=== PATIENT | female | born 1945 | race Caucasian/White ===

== ENCOUNTER → 2020-06-29 16:10 | Outpatient (BNVA) | payer MEDICARE, SELFPAY | PROVIDERS: PCP Internal Medicine; Referring Provider Internal Medicine; Visit Provider Student in an Organized Health Care Education/Training Program | DX: M35.3 Polymyalgia rheumatica (principal); Z79.52 Long term (current) use of systemic steroids | CPT/HCPCS: 99212 ==

== ENCOUNTER 2020-08-16 13:07 | Outpatient (REF) | payer MEDICARE, SELFPAY ==
[2020-08-16 14:56] LABS: Alanine Aminotransferase 19 U/L (0-31); Albumin Level 4.1 g/dL (3.5-5.0); Alkaline Phosphatase 47 U/L (39-117); Anion Gap 12 (12-20); Aspartate Amino Transferase 22 U/L (5-31); Bilirubin Total 0.4 mg/dL (0.0-1.0); Blood Urea Nitrogen 16 mg/dL (9-16); C Reactive Protein 0.15 mg/dL (< or = 0.50); Calcium 9.5 mg/dL (8.4-10.2); Carbon Dioxide 27 mmol/L (22-29); Chloride 103 mmol/L (96-108); Estimated Glomerular Filt Rate > 60; Glucose Random 88 mg/dL (60-115); Potassium 4.4 mmol/l (3.3-5.1); Sodium 138 mmol/L (135-145); Total Protein 6.7 g/dL (6.5-8.0)
[2020-08-16 15:06] LABS: Erythrocyte Sedimentation Rate 5 MM/HR (0-20)
[2020-08-16 16:05] LABS: T4 Thyroxine 6.1 ug/dL (4.5-12.0)
[2020-08-17 09:31] LABS: Triiodothyronine T3 Free 2.4 pg/mL (2.3-4.2)
== END 2020-08-16 13:08 | disposition home or self-care (01) ==
LOC: HO.LAB 13:07
PROVIDERS: Absent Provider Student in an Organized Health Care Education/Training Program; PCP Internal Medicine; Visit Provider Family Medicine
DX: M35.3 Polymyalgia rheumatica (principal); Z79.899 Other long term (current) drug therapy
CPT/HCPCS: 36415; 80053; 84436; 84443; 84481; 85652; 86140

== ENCOUNTER → 2020-09-01 15:29 | Outpatient (BNVA) | payer MEDICARE, SELFPAY | PROVIDERS: PCP Internal Medicine; Visit Provider Student in an Organized Health Care Education/Training Program | DX: M35.3 Polymyalgia rheumatica (principal); Z79.52 Long term (current) use of systemic steroids | CPT/HCPCS: 99212 ==

== ENCOUNTER 2020-11-09 14:28 | Outpatient (REF) | payer MEDICARE, SELFPAY ==
[2020-11-09 15:36] LABS: C Reactive Protein 0.29 mg/dL (< or = 0.50)
[2020-11-09 16:01] LABS: Erythrocyte Sedimentation Rate 6 MM/HR (0-20)
== END 2020-11-09 14:29 | disposition home or self-care (01) ==
LOC: HO.LAB 14:28
PROVIDERS: PCP Internal Medicine; Visit Provider Student in an Organized Health Care Education/Training Program
DX: M35.3 Polymyalgia rheumatica (principal); Z79.899 Other long term (current) drug therapy; Z87.891 Personal history of nicotine dependence; Z79.52 Long term (current) use of systemic steroids
CPT/HCPCS: 36415; 85652; 86140; 99212

== ENCOUNTER 2020-11-16 12:48 | Outpatient (REF) | payer MEDICARE, SELFPAY ==
--- NOTE | ~2020-11-16 | MM_ITS ---
EXAMINATION: BONE DENSITOMETRY CLINICAL INDICATION: Long-term, current, use of systemic steroids. Polymyalgia rheumatica. COMPARISON: Baseline BD dated 08/08/2018. TECHNIQUE: Using a [employer] DXA System (software version: 13.1) manufactured by [employer], dual-energy x-ray absorptiometry was performed of the lumbar spine and left hip. The images are of good technical quality. Summary results are attached. FINDINGS: AP SPINE L1-L4: Current: BMD 1.253 g/cm2, Z-score 2.1, T-score 0.6, normal, 3.4% increase from baseline (<5% change is not significant). Baseline: BMD 1.212 g/cm2. LEFT FEMUR, NECK: Current: BMD 0.955 g/cm2, Z-score 1.1, T-score -0.6, normal. Baseline: BMD 1.015 g/cm2. LEFT FEMUR, TOTAL: Current: BMD 0.921 g/cm2, Z-score 0.8, T-score -0.7, normal, 1.4% decrease from baseline (<5% change is not significant). Baseline: BMD 0.934 g/cm2. IDENTIFIED RISK FACTORS: Height loss, secondary osteoporosis, glucocorticoids (chronic), menopause. HISTORY OF FRACTURE: None listed. MEDICATIONS: Calcium supplements or multivitamin, vitamin D, ERT/SERMS . MM/XR DEXA axial skeleton IMPRESSION: 1. DIAGNOSIS: Normal bone density based on the lowest T-score value of -0.7 in the total femur applying World Health Organization criteria. 2. 10-YEAR FRACTURE RISK PREDICTION, FRAX: Major osteoporotic fracture (clinical spine, forearm, hip or shoulder) 13.6%. Hip fracture 1.8%. 3. Treatment Recommendations: NOF guidelines recommend consideration for treatment in postmenopausal women and men age 50 and older presenting with the following: -A hip or vertebral (clinical or morphometric) fracture. -T-score less than or equal to -2.5 at the femoral neck or spine after appropriate evaluation to exclude secondary causes. -Low bone mass at the hip or spine and a 10-year fracture probability by FRAX of greater than or equal to 3% for hip fracture or greater than or equal to 20% for major osteoporotic fracture based on the [place] adapted WHO algorithm. 4. Other Recommendations: All treatment decisions require clinical judgment and consideration of individual patient factors, including patient preferences, comorbidities, previous drug use, risk factors not captured in the FRAX model (e.g. frailty, falls, vitamin D deficiency, increased bone turnover, interval significant decline in bone density) and possible under or overestimation of fracture risk by FRAX. FUTURE SCAN RECOMMENDATION: People with diagnosed cases of osteoporosis or at high risk for fracture should have regular bone mineral density tests. For patients eligible for Medicare, routine testing is allowed once every 2 years. The testing frequency can be increased to one year for patients who have rapidly progressing disease, those who are receiving or discontinuing medical therapy to restore bone mass, or have additional risk factors.
== END 2020-11-16 12:49 | disposition home or self-care (01) ==
LOC: HO.MAMMO 12:48
PROVIDERS: PCP Internal Medicine; Visit Provider Student in an Organized Health Care Education/Training Program
DX: Z13.820 Encounter for screening for osteoporosis (principal); E27.49 Other adrenocortical insufficiency; M81.0 Age-related osteoporosis without current pathological fracture; Z78.0 Asymptomatic menopausal state; Z79.52 Long term (current) use of systemic steroids
CPT/HCPCS: 77080

== ENCOUNTER → 2021-01-18 14:45 | Outpatient (BNVA) | payer MEDICARE, SELFPAY | PROVIDERS: PCP Internal Medicine; Visit Provider Student in an Organized Health Care Education/Training Program | DX: M35.3 Polymyalgia rheumatica (principal); Z79.52 Long term (current) use of systemic steroids | CPT/HCPCS: 99212 ==

== ENCOUNTER 2021-03-07 14:58 | Outpatient (REF) | payer MEDICARE, SELFPAY ==
[2021-03-07 16:36] LABS: Thyroid Stimulating Hormone 1.43 uIU/mL (0.32-4.0)
== END 2021-03-07 14:59 | disposition home or self-care (01) ==
LOC: HO.LAB 14:58
PROVIDERS: PCP Internal Medicine; Visit Provider Family Medicine
DX: Z79.899 Other long term (current) drug therapy (principal)
CPT/HCPCS: 36415; 84443

== ENCOUNTER 2021-03-31 14:25 | Outpatient (REF) | payer MEDICARE, SELFPAY ==
[2021-03-31 15:46] LABS: C Reactive Protein 0.15 mg/dL (< or = 0.50)
[2021-03-31 16:24] LABS: Erythrocyte Sedimentation Rate 6 MM/HR (0-20)
== END 2021-03-31 14:26 | disposition home or self-care (01) ==
LOC: HO.LAB 14:25
PROVIDERS: PCP Internal Medicine; Visit Provider Nurse Practitioner Family
DX: M35.3 Polymyalgia rheumatica (principal); Z79.52 Long term (current) use of systemic steroids
CPT/HCPCS: 36415; 85652; 86140; 99212

== ENCOUNTER 2021-06-06 07:33 | Outpatient (REF) | payer MEDICARE, SELFPAY ==
[2021-06-06 08:45] LABS: Hematocrit 46.7 % (37.0-47.0); Hemoglobin 15.4 g/dl (12.0-16.0); Mean Corpuscular Hemoglobin 32.4 pg (27.0-33.0); Mean Corpuscular Volume 98.1 fL (80.0-98.0); Mean Platelet Volume 9.2 fL (9.4-12.3); Platelet Count 288 X10*3/uL (160-400); Red Blood Count 4.76 X10*6/uL (4.20-5.50); Red Cell Distribution Width 12.1 % (11.0-16.0); White Blood Count 9.7 X10*3/uL (4.8-10.8)
[2021-06-06 09:15] LABS: Alanine Aminotransferase 19 U/L (0-31); Albumin Level 3.9 g/dL (3.5-5.0); Alkaline Phosphatase 68 U/L (39-117); Anion Gap 12 (12-20); Aspartate Amino Transferase 23 U/L (5-31); Bilirubin Total 0.5 mg/dL (0.0-1.0); Blood Urea Nitrogen 17 mg/dL (9-16); Calcium 9.4 mg/dL (8.4-10.2); Carbon Dioxide 26 mmol/L (22-29); Chloride 108 mmol/L (96-108); Cholesterol 288 mg/dL; Estimated Glomerular Filt Rate > 60; Glucose Random 82 mg/dL (60-115); HDL Cholesterol 72 mg/dL; LDL Cholesterol Calculated 200 mg/dl; Potassium 3.9 mmol/L (3.3-5.1); Sodium 142 mmol/L (135-145); Total Protein 6.3 g/dL (6.5-8.0); Triglycerides 81 mg/dL
[2021-06-06 09:31] LABS: Thyroid Stimulating Hormone 3.83 uIU/mL (0.32-4.0); Vitamin D 25-OH Total 69.9 ng/mL (>30)
[2021-06-06 10:50] LABS: Appearance Urine HAZY; Color Urine YELLOW; Glucose Urine UA NEG (NEG); Leukocyte Esterase Urine NEG (NEG); Nitrite Urine NEG (NEG); Specific Gravity - Urine 1.025 (1.005-1.025); Urine Blood NEG (NEG); Urine Ketones NEG (NEG); Urine Protein NEG (NEG-TRACE)
== END 2021-06-06 07:34 | disposition home or self-care (01) ==
LOC: HO.LAB 07:33
PROVIDERS: PCP Internal Medicine; Visit Provider Internal Medicine
DX: E78.89 Other lipoprotein metabolism disorders (principal); E03.9 Hypothyroidism, unspecified; M89.9 Disorder of bone, unspecified
CPT/HCPCS: 36415; 80053; 80061; 81003; 82306; 84443; 85027

== ENCOUNTER 2021-06-09 14:26 | Outpatient (REF) | payer MEDICARE, SELFPAY ==
[2021-06-09 16:10] LABS: C Reactive Protein 0.17 mg/dL (< or = 0.50)
[2021-06-09 16:27] LABS: Erythrocyte Sedimentation Rate 6 MM/HR (0-20)
== END 2021-06-09 14:27 | disposition home or self-care (01) ==
LOC: HO.LAB 14:26
PROVIDERS: PCP Internal Medicine; Visit Provider Nurse Practitioner Family
DX: M35.3 Polymyalgia rheumatica (principal); Z79.52 Long term (current) use of systemic steroids
CPT/HCPCS: 36415; 85652; 86140; 99212

== ENCOUNTER 2021-07-13 11:09 | Outpatient (REF) | payer MEDICARE, SELFPAY ==
[2021-07-13 13:30] LABS: Thyroid Stimulating Hormone 0.67 uIU/mL (0.32-4.0)
== END 2021-07-13 11:10 | disposition home or self-care (01) ==
LOC: HO.LABR 11:09
PROVIDERS: PCP Internal Medicine; Visit Provider Family Medicine
DX: Z79.899 Other long term (current) drug therapy (principal)
CPT/HCPCS: 36415; 84443

== ENCOUNTER 2021-08-23 11:33 | Outpatient (REF) | payer MEDICARE, SELFPAY ==
[2021-08-23 13:28] LABS: Thyroid Stimulating Hormone 1.15 uIU/mL (0.32-4.0)
== END 2021-08-23 11:34 | disposition home or self-care (01) ==
LOC: HO.LABR 11:33
PROVIDERS: PCP Internal Medicine; Visit Provider Family Medicine
DX: Z79.899 Other long term (current) drug therapy (principal)
CPT/HCPCS: 36415; 84443

== ENCOUNTER 2021-09-05 14:19 | Outpatient (REF) | payer MEDICARE, SELFPAY ==
[2021-09-05 16:10] LABS: Erythrocyte Sedimentation Rate 2 MM/HR (0-20)
== END 2021-09-05 14:20 | disposition home or self-care (01) ==
LOC: HO.LAB 14:19
PROVIDERS: PCP Nurse Practitioner; Visit Provider Nurse Practitioner Family
DX: M35.3 Polymyalgia rheumatica (principal); Z79.52 Long term (current) use of systemic steroids
CPT/HCPCS: 36415; 85652; 86140; 99212

== ENCOUNTER 2021-10-24 10:54 | Outpatient (REF) | payer MEDICARE, SELFPAY | END 2021-10-24 10:55 | disposition home or self-care (01) | LOC: HO.LABR 10:54 | PROVIDERS: PCP Internal Medicine; Visit Provider Family Medicine | DX: Z79.899 Other long term (current) drug therapy (principal) | CPT/HCPCS: 36415; 84443 ==

== ENCOUNTER 2021-10-31 13:51 | Outpatient (REF) | payer MEDICARE, SELFPAY ==
[2021-10-31 16:23] LABS: Erythrocyte Sedimentation Rate 4 MM/HR (0-20)
[2021-10-31 16:41] LABS: C Reactive Protein 0.05 mg/dL (< or = 0.50)
== END 2021-10-31 13:52 | disposition home or self-care (01) ==
LOC: HO.LAB 13:51
PROVIDERS: PCP Internal Medicine; Visit Provider Nurse Practitioner Family
DX: M35.3 Polymyalgia rheumatica (principal); Z79.52 Long term (current) use of systemic steroids
CPT/HCPCS: 36415; 85652; 86140; 99212

== ENCOUNTER 2022-01-04 14:30 | Outpatient (REF) | payer MEDICARE, SELFPAY ==
[2022-01-04 16:19] LABS: C Reactive Protein 0.08 mg/dL (< or = 0.50)
[2022-01-04 16:39] LABS: Erythrocyte Sedimentation Rate 3 MM/HR (0-20)
== END 2022-01-04 14:31 | disposition home or self-care (01) ==
LOC: HO.LAB 14:30
PROVIDERS: PCP Internal Medicine; Visit Provider Nurse Practitioner Family
DX: M35.3 Polymyalgia rheumatica (principal); Z79.52 Long term (current) use of systemic steroids; Z79.899 Other long term (current) drug therapy
CPT/HCPCS: 36415; 85652; 86140; 99212

== ENCOUNTER 2022-03-02 15:46 | Outpatient (REF) | payer MEDICARE, SELFPAY ==
[2022-03-02 17:02] LABS: Thyroid Stimulating Hormone 0.91 uIU/mL (0.32-4.0)
== END 2022-03-02 15:47 | disposition home or self-care (01) ==
LOC: HO.LABR 15:46
PROVIDERS: PCP Internal Medicine; Visit Provider Family Medicine
DX: Z79.899 Other long term (current) drug therapy (principal)
CPT/HCPCS: 36415; 84443

== ENCOUNTER 2022-03-29 15:35 | Outpatient (REF) | payer MEDICARE, SELFPAY ==
[2022-03-29 17:20] LABS: Erythrocyte Sedimentation Rate 5 MM/HR (0-20)
== END 2022-03-29 15:36 | disposition home or self-care (01) ==
LOC: HO.LAB 15:35
PROVIDERS: PCP Internal Medicine; Visit Provider Nurse Practitioner Family
DX: M35.3 Polymyalgia rheumatica (principal); Z79.52 Long term (current) use of systemic steroids
CPT/HCPCS: 36415; 85652; 86140; 99212

== ENCOUNTER 2022-05-29 16:10 | Outpatient (REF) | payer MEDICARE, SELFPAY ==
[2022-05-29 17:05] LABS: C Reactive Protein 0.28 mg/dL (< or = 0.50)
[2022-05-29 17:29] LABS: Thyroid Stimulating Hormone 0.77 uIU/mL (0.32-4.0)
[2022-05-29 17:45] LABS: Erythrocyte Sedimentation Rate 7 MM/HR (0-20)
== END 2022-05-29 16:11 | disposition home or self-care (01) ==
LOC: HO.LAB 16:10
PROVIDERS: Absent Provider Nurse Practitioner Family; PCP Internal Medicine; Visit Provider Family Medicine
DX: M35.3 Polymyalgia rheumatica (principal); F32.A Depression, unspecified; E27.49 Other adrenocortical insufficiency; Z79.52 Long term (current) use of systemic steroids; Z79.899 Other long term (current) drug therapy
CPT/HCPCS: 36415; 84443; 85652; 86140; 99212

== ENCOUNTER 2022-06-15 07:22 | Outpatient (REF) | payer MEDICARE, SELFPAY ==
[2022-06-15 07:29] LABS: MANUAL DIFF FLAG NO
[2022-06-15 07:41] LABS: Basophils Absolute Auto 0.1 X10*3/uL (0.0-0.2); Basophils Percent Auto 1.2 % (0-2); Eosinophils Absolute Auto 0.4 X10*3/uL (0.0-0.4); Eosinophils Percent Auto 3.9 % (0-4); Hematocrit 46.1 % (37.0-47.0); Hemoglobin 15.4 g/dl (12.0-16.0); Imm Gran Abs Auto 0.03 X10*3/uL (0.00-0.03); Imm Gran Pct Auto 0.3 % (0.0-0.4); Lymphocytes Absolute Auto 3.5 X10*3/uL (1.2-4.9); Lymphocytes Percent Auto 36.3 % (20-40); Mean Corpuscular HGB Conc 33.4 g/dl (31.0-35.0); Mean Corpuscular Hemoglobin 32.3 pg (27.0-33.0); Mean Corpuscular Volume 96.6 fL (80.0-98.0); Monocytes Absolute Auto 0.8 X10*3/uL (0.1-1.2); Monocytes Percent Auto 8.2 % (2-11); Neutrophils Absolute Auto 4.9 x10*3/uL (2.0-8.3); Neutrophils Percent Auto 50.1 % (45-73); Platelet Count 261 X10*3/uL (160-400); Red Blood Count 4.77 X10*6/uL (4.20-5.50); Red Cell Distribution Width 12.1 % (11.0-16.0); White Blood Count 9.7 X10*3/uL (4.8-10.8)
[2022-06-15 08:01] LABS: Alanine Aminotransferase 20 U/L (0-31); Albumin Level 3.8 g/dL (3.5-5.0); Alkaline Phosphatase 45 U/L (39-117); Anion Gap 13 (12-20); Aspartate Amino Transferase 23 U/L (5-31); Bilirubin Total 0.6 mg/dL (0.0-1.0); Blood Urea Nitrogen 19 mg/dL (9-16); Calcium 8.8 mg/dL (8.4-10.2); Carbon Dioxide 25 mmol/L (22-29); Chloride 108 mmol/L (96-108); Cholesterol 278 mg/dL; Estimated Glomerular Filt Rate > 60; Glucose Random 82 mg/dL (60-115); HDL Cholesterol 77 mg/dL; LDL Cholesterol Calculated 182 mg/dl; Sodium 142 mmol/L (135-145); Total Protein 6.3 g/dL (6.5-8.0); Triglycerides 98 mg/dL
[2022-06-15 08:23] LABS: Appearance Urine Cloudy; Color Urine Yellow; Glucose Urine UA Negative (Negative); Leukocyte Esterase Urine Moderate (2+) (Negative); Nitrite Urine Negative (Negative); PH 5.5 (5.0-9.0); Specific Gravity - Urine 1.025 (1.005-1.025); UMIC TRIGGER UA YES; Urine Blood Negative (Negative); Urine Ketones Negative (Negative); Urine Protein Negative (Neg-Trace)
[2022-06-15 08:38] LABS: Bacteria Urine 1+ (None Seen); Hyaline Casts Urine 0-2 /LPF (0-2); WBC Urine 21-50 /HPF (0-5)
[2022-06-15 09:40] LABS: Vitamin B12 883 pg/mL (200-900)
[2022-06-19 17:32] LABS: Homocysteine 8.2 umol/L (<10.4)
== END 2022-06-15 07:23 | disposition home or self-care (01) ==
LOC: HO.LAB 07:22
PROVIDERS: Absent Provider Internal Medicine; PCP Internal Medicine; Visit Provider Family Medicine
DX: E03.9 Hypothyroidism, unspecified (principal); M89.9 Disorder of bone, unspecified; E78.5 Hyperlipidemia, unspecified; F32.A Depression, unspecified
CPT/HCPCS: 36415; 80053; 80061; 81001; 81003; 82607; 83090; 84443; 85025

== ENCOUNTER 2022-07-05 14:35 | Outpatient (REF) | payer MEDICARE, SELFPAY ==
[2022-07-05 15:57] LABS: Free T4 (Free Thyroxine) 1.03 ng/dL (0.71-1.85); Thyroid Stimulating Hormone 0.92 uIU/mL (0.32-4.0)
[2022-07-07 02:49] LABS: Triiodothyronine T3 Free 2.5 pg/mL (2.3-4.2)
== END 2022-07-05 14:36 | disposition home or self-care (01) ==
LOC: HO.LAB 14:35
PROVIDERS: PCP Internal Medicine; Visit Provider Family Medicine
DX: Z79.899 Other long term (current) drug therapy (principal)
CPT/HCPCS: 36415; 84439; 84443; 84481

== ENCOUNTER → 2022-08-22 10:44 | Outpatient (BNVA) | payer MEDICARE, SELFPAY | PROVIDERS: PCP Internal Medicine; Visit Provider Internal Medicine Rheumatology | DX: M35.3 Polymyalgia rheumatica (principal); Z79.52 Long term (current) use of systemic steroids | CPT/HCPCS: 99212 ==

== ENCOUNTER 2022-10-23 14:43 | Outpatient (REF) | payer MEDICARE, SELFPAY ==
[2022-10-23 16:22] LABS: Free T4 (Free Thyroxine) 0.95 ng/dL (0.71-1.85); Thyroid Stimulating Hormone 1.07 uIU/mL (0.32-4.0)
[2022-10-24 17:38] LABS: Triiodothyronine T3 Free 2.4 pg/mL (2.3-4.2)
== END 2022-10-23 14:44 | disposition home or self-care (01) ==
LOC: HO.LAB 14:43
PROVIDERS: PCP Internal Medicine; Visit Provider Family Medicine
DX: Z79.899 Other long term (current) drug therapy (principal)
CPT/HCPCS: 36415; 84439; 84443; 84481

== ENCOUNTER 2022-11-09 10:59 | Outpatient (REF) | payer MEDICARE, SELFPAY ==
[2022-11-09 12:25] LABS: MANUAL DIFF FLAG NO
[2022-11-09 13:31] LABS: Basophils Absolute Auto 0.1 X10*3/uL (0.0-0.2); Basophils Percent Auto 0.9 % (0-2); Eosinophils Absolute Auto 0.1 X10*3/uL (0.0-0.4); Eosinophils Percent Auto 1.1 % (0-4); Hematocrit 48.9 % (37.0-47.0); Imm Gran Abs Auto 0.04 X10*3/uL (0.00-0.03); Imm Gran Pct Auto 0.4 % (0.0-0.4); Lymphocytes Absolute Auto 1.2 X10*3/uL (1.2-4.9); Lymphocytes Percent Auto 12.6 % (20-40); Mean Corpuscular HGB Conc 32.7 g/dl (31.0-35.0); Mean Corpuscular Hemoglobin 31.6 pg (27.0-33.0); Mean Corpuscular Volume 96.6 fL (80.0-98.0); Mean Platelet Volume 9.3 fL (9.4-12.3); Monocytes Absolute Auto 0.5 X10*3/uL (0.1-1.2); Neutrophils Absolute Auto 7.5 x10*3/uL (2.0-8.3); Platelet Count 263 X10*3/uL (160-400); Red Blood Count 5.06 X10*6/uL (4.20-5.50); Red Cell Distribution Width 12.7 % (11.0-16.0); White Blood Count 9.4 X10*3/uL (4.8-10.8)
[2022-11-09 14:03] LABS: C Reactive Protein 0.39 mg/dL (< or = 0.50)
[2022-11-09 14:14] LABS: Erythrocyte Sedimentation Rate 6 MM/HR (0-20)
[2022-11-09 14:15] LABS: Thyroid Stimulating Hormone 0.84 uIU/mL (0.32-4.0)
== END 2022-11-09 11:00 | disposition home or self-care (01) ==
LOC: HO.LAB 10:59
PROVIDERS: PCP Internal Medicine; Visit Provider Internal Medicine Rheumatology
DX: M35.3 Polymyalgia rheumatica (principal); Z79.899 Other long term (current) drug therapy; Z79.52 Long term (current) use of systemic steroids
CPT/HCPCS: 36415; 84443; 85025; 85652; 86140; 99212

== ENCOUNTER 2022-11-21 10:44 | Outpatient (REF) | payer MEDICARE, SELFPAY ==
--- NOTE | ~2022-11-21 | MM_ITS ---
EXAMINATION: BONE DENSITOMETRY CLINICAL INDICATION: Polymyalgia rheumatica. COMPARISON: Previous BD dated 11/16/2020 and baseline BD dated 08/18/2018. TECHNIQUE: Using a [employer] DXA System (software version: 13.1) manufactured by [employer], dual-energy x-ray absorptiometry was performed of the lumbar spine and left hip. The images are of good technical quality. Summary results are attached. FINDINGS: AP SPINE L1-L4: Current: BMD 1.229 g/cm2, Z-score 1.8, T-score 0.4, normal, 1.9% decrease from previous, 1.4% increase from baseline (<5% change is not significant). Prior: BMD 1.253 g/cm2. Baseline: BMD 1.212 g/cm2. LEFT FEMUR, NECK: Current: BMD 0.976 g/cm2, Z-score 1.3, T-score -0.4, normal. Prior: BMD 0.955 g/cm2. Baseline: BMD 1.015 g/cm2. LEFT FEMUR, TOTAL: Current: BMD 0.908 g/cm2, Z-score 0.8, T-score -0.8, normal, 1.4% decrease from previous, 2.8% decrease from baseline (<5% change is not significant). Prior: BMD 0.921 g/cm2. Baseline: BMD 0.934 g/cm2. IDENTIFIED RISK FACTORS: Height loss, glucocorticoids (chronic), menopause. HISTORY OF FRACTURE: None listed. MEDICATIONS: None listed. MM/XR DEXA axial skeleton IMPRESSION: 1. DIAGNOSIS: Normal bone density based on the lowest T-score value of -0.8 in the total femur applying World Health Organization criteria. 2. 10-YEAR FRACTURE RISK PREDICTION, FRAX: According to the guidelines, FRAX calculation should only be performed on patients in the osteopenia bone density category. Therefore, FRAX was not performed on this patient. 3. Treatment Recommendations: NOF guidelines recommend consideration for treatment in postmenopausal women and men age 50 and older presenting with the following: -A hip or vertebral (clinical or morphometric) fracture. -T-score less than or equal to -2.5 at the femoral neck or spine after appropriate evaluation to exclude secondary causes. -Low bone mass at the hip or spine and a 10-year fracture probability by FRAX of greater than or equal to 3% for hip fracture or greater than or equal to 20% for major osteoporotic fracture based on the [place] adapted WHO algorithm. 4. Other Recommendations: All treatment decisions require clinical judgment and consideration of individual patient factors, including patient preferences, comorbidities, previous drug use, risk factors not captured in the FRAX model (e.g. frailty, falls, vitamin D deficiency, increased bone turnover, interval significant decline in bone density) and possible under or overestimation of fracture risk by FRAX. FUTURE SCAN RECOMMENDATION: People with diagnosed cases of osteoporosis or at high risk for fracture should have regular bone mineral density tests. For patients eligible for Medicare, routine testing is allowed once every 2 years. The testing frequency can be increased to one year for patients who have rapidly progressing disease, those who are receiving or discontinuing medical therapy to restore bone mass, or have additional risk factors.
== END 2022-11-21 10:45 | disposition home or self-care (01) ==
LOC: HO.MAMMO 10:44
PROVIDERS: PCP Internal Medicine; Visit Provider Internal Medicine Rheumatology
DX: Z13.820 Encounter for screening for osteoporosis (principal); Z78.0 Asymptomatic menopausal state; M35.3 Polymyalgia rheumatica; Z79.52 Long term (current) use of systemic steroids
CPT/HCPCS: 77080

== ENCOUNTER 2022-12-25 14:42 | Outpatient (REF) | payer MEDICARE, SELFPAY ==
[2022-12-25 16:44] LABS: Free T4 (Free Thyroxine) 1.09 ng/dL (0.71-1.85)
[2022-12-27 03:37] LABS: Triiodothyronine T3 Free 2.2 pg/mL (2.3-4.2)
== END 2022-12-25 14:43 | disposition home or self-care (01) ==
LOC: HO.LAB 14:42
PROVIDERS: Visit Provider Family Medicine
DX: Z79.899 Other long term (current) drug therapy (principal)
CPT/HCPCS: 36415; 84439; 84443; 84481

== ENCOUNTER 2023-01-16 06:54 | Outpatient (REF) | payer MEDICARE, SELFPAY ==
[2023-01-16 07:54] LABS: C Reactive Protein 0.93 mg/dL (< or = 0.50)
[2023-01-16 08:10] LABS: Erythrocyte Sedimentation Rate 9 MM/HR (0-20)
== END 2023-01-16 06:55 | disposition home or self-care (01) ==
LOC: HO.LAB 06:54
PROVIDERS: PCP Internal Medicine; Visit Provider Internal Medicine Rheumatology
DX: M35.3 Polymyalgia rheumatica (principal)
CPT/HCPCS: 36415; 85652; 86140

== ENCOUNTER → 2023-01-17 08:11 | Outpatient (BNVA) | payer MEDICARE, SELFPAY | PROVIDERS: PCP Internal Medicine; Visit Provider Internal Medicine Rheumatology | DX: M35.3 Polymyalgia rheumatica (principal); Z79.52 Long term (current) use of systemic steroids | CPT/HCPCS: 99212 ==

== ENCOUNTER 2023-02-13 09:30 | Outpatient (AMB) | payer MEDICARE, SELFPAY ==
--- NOTE | 2023-02-13 09:31 | MHC.OFFVIS ---
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 patient is currently taking prednisone since june 2018 Allergies penicillin V Allergy (Intermediate, Verified 02/13/23 09:34) Rash HPI Rheum Ref Giant Cell Arteritis HPI Details Very pleasant 77-year-old female presents for evaluation regarding giant cell arteritis. She does have a history of being on steroids for polymyalgia rheumatica.. She does have occasional bilateral knee pain. She has being doing well until recently she started developing a left temporal headache. This had been progressing for some time. She was seen by Rheumatology. She now was sent over for evaluation of giant cell arteritis. [facility] Medical History Polymyalgia rheumatica Surgical History History of knee replacement procedure of right knee Family History Father Leukemia Mother Stroke Social History Alcohol intake: current Alcohol intake frequency: a few times a week Alcohol type: wine Patient Tobacco Use Status: Former Tobacco user Years Smoked: 10 Review of Systems Const All systems reviewed & are unremarkable except as noted in HPI and below Reports no additional complaints ENT Reports Normal hearing present Card Denies chest pain, Denies chest pain at rest, Denies chest pain with activity and Denies pedal edema Resp Denies cough GI Denies abdominal pain Musc Denies abnormal gait, Denies muscle cramps and Denies radiating pain into limb Skin/Breast Denies skin ulcer and Denies wounds Neuro Reports Normal hearing present and Denies abnormal gait Psych Reports no additional complaints Physical Exam Const General: cooperative, healthy appearing and comfortable Orientation/consciousness: oriented to person, oriented to place and oriented to time HEENT Head: Yes normal to inspection Neck Neck: Yes normal visual inspection Carotids: no bruits Chest Chest palpation & inspection: normal inspection of the chest Resp Effort & Inspection: normal respiratory effort and able to speak in complete sentences Auscultation: clear to auscultation bilaterally, no crackles, no rales, no rhonchi and no wheezes Cardio Rate: regular rate Rhythm: regular rhythm Heart sounds: S1 normal heart sound present and S2 normal heart sound present Bruits: no carotid bruits Peripheral pulses: Peripheral pulses 2+ throughout GI Inspection: Yes normal to inspection Skin Wounds: no wounds Hair: normal Neuro General: oriented to person, oriented to place and oriented to time Cranial nerves: Yes CN's II-XII intact bilaterally and Yes Normal hearing present Cognition (Neuro): normal cognition Motor exam (neuro): 5/5 motor strength present throughout Extrem Other: venous exam: No significant superficial varicosities or spider telangiectasias, minimal edema General: No clubbing, No cyanosis and No edema Psych Appearance: grossly normal Mental Status: mental status grossly normal Speech and movement: Normal speech and movement present Results Reviewed Results Reviewed: Laboratory testing demonstrates ESR of 9 and CRP is slightly elevated at 0.93. In addition we were able to review the results of carotid ultrasound performed at [facility] on 12/11/2022 which demonstrates no significant carotid stenosis. Written report reviewed only. Assessment & Plan Assessment & Plan (1) Giant cell arteritis: Code(s): M31.6 - Other giant cell arteritis Plan: In short the patient has concerns of giant cell arteritis. Due to her symptoms and elevated CRP we will plan to perform a temporal artery biopsy. She will require a left temporal artery biopsy. Risks benefits complications of the procedure were discussed in detail with the patient. She understood and consented. We will schedule as soon as possible. Coding Level of Care Code New Pt Level 4 (27540) Diagnoses Giant cell arteritis M31.6
== END 2023-02-13 09:49 | disposition home or self-care (01) ==
LOC: HO.HVS 09:30
PROVIDERS: PCP Internal Medicine; Visit Provider Surgery Vascular Surgery
DX: M31.6 Other giant cell arteritis (principal)
CPT/HCPCS: 99204

== ENCOUNTER → 2023-02-13 09:30 | Outpatient (BNVA) | payer MEDICARE, SELFPAY | PROVIDERS: PCP Internal Medicine; Visit Provider Surgery Vascular Surgery | DX: M31.6 Other giant cell arteritis (principal) | CPT/HCPCS: 99202 ==

== ENCOUNTER 2023-02-19 10:09 | Day surgery (SDC) | payer MEDICARE, SELFPAY ==
[2023-02-19 10:32] VITALS: BMI 26.2
[2023-02-19 10:35] VITALS: BP 152/59; PULSE 64; RESP 16; TEMP 37.7; O2SAT 97
[2023-02-19] MEDS: Lactated Ringers 1,000 ML 100 ML IVCONT (11:00)
--- NOTE | 2023-02-19 12:37 | P.CONAN_ITS ---
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) Hypercholesterolemia (Acute) Depressive disorder (Acute) Hypothyroidism (Acute) Glucocorticoid deficiency (Acute) On prednisone therapy (Acute) Headache (Acute) Giant cell arteritis (Acute) Polymyalgia rheumatica (Acute) Past Medical History Medical History Polymyalgia rheumatica Family History Family History Father Leukemia Mother Stroke Family history of problems with anesthesia: No Surgical History Surgical History (Updated 02/19/23 @ 13:22 by Sydnie Bales MD) H/O cataract removal with insertion of prosthetic lens H/O tubal ligation History of knee replacement procedure of right knee History of Problems with Anesthesia: No Social History Social History Alcohol intake: current Alcohol intake frequency: a few times a week Alcohol type: wine Patient Tobacco Use Status: Former Tobacco user Quit Date: 1985 Tobacco use type: Cigarette Years Smoked: 20 Smoked in Last 30 Days: No Use of substances other than those prescribed or required for medical reasons: No Are you DNR?: No Advance Directives: No Advance Directives Information Provided: Yes Meds Allergies Allergy/AdvReac Type Severity Reaction Status Date / Time penicillin V Allergy Intermediate Rash Verified 02/19/23 11:08 Active Medications: Current Medications Lactated Ringer's (Lr) 1,000 mls @ 100 mls/hr IVCONT .Q10H ALRETTE Last Admin: 02/19/23 11:00 Dose: 100 mls/hr Home Medications Medication Instructions Recorded Confirmed Last Taken Type estradiol 0.25 mg/0.25 gram (0.1 1 packet transdermal DAILY 06/29/20 02/19/23 Unknown History %) transdermal gel packet (Divigel) trazodone 50 mg tablet 50 mg PO BEDTIME PRN Sleep 06/29/20 02/19/23 Unknown History venlafaxine 150 mg 150 mg PO DAILY 125 mg 06/29/20 02/19/23 02/19/23 History capsule,extended release 24 hr levothyroxine 88 mcg tablet 88 mcg PO DAILY 08/22/22 02/19/23 Unknown History (Unithroid) Exam Exam Date and Time: February 19, 2023 1237 Height,Weight and Vital Signs: Height 5 ft 6.5 in Weight 74.843 kg Last Vital Signs Temp 99.8 F 02/19/23 10:35 Pulse 64 02/19/23 10:35 Resp 16 02/19/23 10:35 BP 152/59 H 02/19/23 10:35 Pulse Ox 97 02/19/23 10:35 O2 Del Method Room Air 02/19/23 10:35 Airway Mallampati Class: III TM Dist: >3cm Neck ROM: Full Loose/Missing/Broken Teeth: No (Denies broken, loose, missing teeth ) Heart: RRR Lungs: CTAB Assessment and Plan Assessment Anesthesia Assessment: Anesthesia Plan Discussed and Chart Reviewed Final Anesthetic Review Family History of Problems with Anesthesia: No History of Problems with Anesthesia: No NPO: Yes ASA Class: III Final Preanesthetic Review: No Changes in Pt Med Stat, Meds/Allgs Chart Reviewed, Consent Obtained/Reviewed and Anes Risks/Benef Reviewed Patient Risk: Intermediate Procedure Risk: Low Assessment/Block/Sedation in SS: Assess/Block/Sedation-SS Anesthetic Plan Anesthetic Plan: GA and MAC: Disposition: Standard PACU
--- NOTE | 2023-02-19 13:13 | MHC.SHP ---
Pre-Procedural Eval Section A Date of Service: 02/19/23 The patient is an INPATIENT: No Changes since office visit: Yes Patient answered all questions The History & Physical has been completed within 30 days and I have reviewed it.: Yes Section B Chief Complaint: Other giant cell arteritis Allergies: Allergies Allergy/AdvReac Type Severity Reaction Status Date / Time penicillin V Allergy Intermediate Rash Verified 02/19/23 11:08 Plan I have reviewed the history and physical and performed a pertinent physical examination on my patient. No changes have occurred unless specified. Time Spent With Patient Time: Total time managing care of this patient today ____ minutes.
--- NOTE | 2023-02-19 14:12 | P.OP_ITS ---
Operative Note Operative Note Date of Service: 02/19/23 Narrative: Operative note by [facility] Preoperative diagnosis: Giant cell arteritis Postoperative diagnosis: Same Procedure: Left temporal artery biopsy Surgeon:Gary Alexandra M.D. Life Skills Trainer: None Anesthesia: Local with sedation performed by Dr. Bales from Anesthesia Specimens: 1 Drains: None Estimated blood loss: Minimal Indications: 77-year-old female with left temporal headaches and workup by Rheumatology presents for left temporal artery biopsy. The patient has signed the informed consent after reviewing risks, complications, benefits, and alternatives previously discussed with the patient. The patient was given the opportunity to ask any additional questions or voice any concerns. All questions were answered to the patient's satisfaction. Procedure in detail: Patient was brought to the operating room prior to which a time-out was called for patient identification site verification. Left head and temporal region was prepped and draped in standard surgical fashion. We made an incision just anterior to the left tragus of the year. We were able to dissect down into the temporal region overlying the vessel we dissected out the fascia. Vessel was easily exposed. Using right angle we were able to encircle the temporal artery. This was tied off with 3-0 silk ties proximally and distally. Subsequently specimen was removed. Was approximately 2-3 cm in length. Once th is was done adequate hemostasis was achieved with electrocautery. Wound was irrigated clear. Deep layer was reapproximated using 2 0 poly Sorb and finally skin was closed using a running subcuticular 4-0 Monocryl. EpiFix was used as a sterile dressing. At the end the case sponge instrument counts were correct. Patient tolerated the procedure well. Returned to recovery with stable vitals. This note is constructed using voice recognition software. While every effort has been made to ensure accuracy, programmer or analyst errors may have been included. Thank you for allowing me to participate in the care of your patient. Yours sincerely, Gary Alexandra MD, FACS, R.P.V.I.
[2023-02-19 14:15] VITALS: BP 136/51; PULSE 51; RESP 15; TEMP 36.3; O2SAT 94
[2023-02-19 14:20] VITALS: BP 131/53; PULSE 48; RESP 14; O2SAT 94
[2023-02-19 14:25] VITALS: BP 144/62; PULSE 56; RESP 16; O2SAT 95
[2023-02-19 14:30] VITALS: BP 151/61; PULSE 52; RESP 18; TEMP 36.8; O2SAT 96
== END 2023-02-19 15:35 | disposition home or self-care (01) ==
PROVIDERS: PCP Internal Medicine; Visit Provider Surgery Vascular Surgery
PROC: (CPT 37609; principal; 2023-02-19 11:50)
DX: M31.6 Other giant cell arteritis (principal); R51.9 Headache, unspecified; M35.3 Polymyalgia rheumatica; Z79.52 Long term (current) use of systemic steroids; Z88.0 Allergy status to penicillin; Z87.891 Personal history of nicotine dependence
CPT/HCPCS: 37609; 88305; J1100; J2405; J2795; J3010

== ENCOUNTER → 2023-02-19 10:09 | Outpatient (BNV) | payer MEDICARE, SELFPAY | PROVIDERS: PCP Internal Medicine; Visit Provider Surgery Vascular Surgery | DX: M31.5 Giant cell arteritis with polymyalgia rheumatica (principal) | CPT/HCPCS: 37609 ==

== ENCOUNTER 2023-02-22 08:50 | Outpatient (REF) | payer MEDICARE, SELFPAY ==
[2023-02-22 11:13] LABS: Erythrocyte Sedimentation Rate 2 MM/HR (0-20)
[2023-02-22 11:14] LABS: C Reactive Protein < 0.10 mg/dL (< or = 0.50)
[2023-02-22 11:20] LABS: Free T4 (Free Thyroxine) 1.05 ng/dL (0.71-1.85); Thyroid Stimulating Hormone 0.49 uIU/mL (0.32-4.0)
[2023-02-24 10:28] LABS: Triiodothyronine T3 Free 2.7 pg/mL (2.3-4.2)
== END 2023-02-22 08:51 | disposition home or self-care (01) ==
LOC: HO.LAB 08:50
PROVIDERS: Absent Provider Family Medicine; PCP Internal Medicine; Visit Provider Internal Medicine Rheumatology
DX: E03.8 Other specified hypothyroidism (principal); M35.3 Polymyalgia rheumatica
CPT/HCPCS: 36415; 84439; 84443; 84481; 85652; 86140

== ENCOUNTER 2023-03-12 10:20 | Outpatient (REF) | payer MEDICARE, SELFPAY ==
[2023-03-12 12:07] LABS: C Reactive Protein < 0.10 mg/dL (< or = 0.50)
[2023-03-12 12:25] LABS: Erythrocyte Sedimentation Rate 2 MM/HR (0-20)
== END 2023-03-12 10:21 | disposition home or self-care (01) ==
LOC: HO.LAB 10:20
PROVIDERS: PCP Internal Medicine; Visit Provider Internal Medicine Rheumatology
DX: M31.6 Other giant cell arteritis (principal)
CPT/HCPCS: 36415; 85652; 86140

== ENCOUNTER 2023-03-28 09:49 | Outpatient (AMB) | payer MEDICARE, SELFPAY ==
--- NOTE | 2023-03-28 10:09 | MHC.OFFVIS ---
Intake Vital Signs 03/28/23 10:10 Height 5 ft 6.5 in Weight 165 lb 9.074 oz BMI 26.3 BP 122/62 Blood Pressure Location Rt brachial Position Sitting Pulse 62 Pulse Source Pulse Oximeter Temp 97.4 F Temp Source Skin Pulse Oximetry (%) 96 Oxygen Delivery Method Room Air Intake Visit Reasons: PMR Intake Note: Here for PMR follow up. Child And Family Therapist Required: No Accompanied by: Spouse Allergies penicillin V Allergy (Intermediate, Verified 03/28/23 10:09) Rash Medication List - Last Reconciled 03/28/23 by Suman Gresham MD estradiol (Divigel) 1 packet transdermal DAILY levothyroxine (Unithroid) 88 mcg PO DAILY prednisone 40 mg; trazodone 50 mg PO BEDTIME PRN venlafaxine ER 150 mg PO DAILY HPI HPI Comments History of Present Illness Details The patient returns for evaluation of her giant cell arteritis. Her accompanies her today. She is down to 40 mg daily on the prednisone. She has not had any headache now for about 10 days. There have been no episodic visual disturbances or jaw claudication. Her headache symptoms were characterized mostly by scalp tenderness along the left congregational region. She initially had the cuprous chloride operator adjust her glasses that my over that area but that did not help much. No cutaeous lesions were noted. She did get some benefit after starting higher dose prednisone but it seems like the headache symptoms had occasionally returned. She is concerned about the prolonged use of high-dose prednisone. She has not had any fever, chills, earache, sore throat, dental pain, cough, urinary frequency, dysuria, or diarrhea. [facility] Medical History Polymyalgia rheumatica Surgical History (Updated 03/28/23 @ 10:14 by THELMA Yadav) H/O cataract removal with insertion of prosthetic lens H/O tubal ligation History of knee replacement procedure of right knee Hx of surgical biopsy Family History Father Leukemia Mother Stroke Social History Alcohol intake: current Alcohol intake frequency: a few times a week Alcohol type: wine Patient Tobacco Use Status: Former Tobacco user Quit Date: 1985 Tobacco use type: Cigarette Years Smoked: 20 Review of Systems Const Details: She feels a bit less energy since being on the prednisone at the higher dose. Negative for appetite change, weight change, fever, chills, malaise Eyes Details: Negative for vision change, dry eyes,headaches and dizziness ENT Details: Negative for hearing change, tinnitus, oral ulcer, nose bleeds and oral dryness. Card Details: Negative chest pain, edema and syncope Resp Details: Negative for SOB, cough and wheezing GI Details: Negative indigestion/heartburn, nausea, abdominal pain, bowel changes, diarrhea, constipation and bloody stool. Details: Negative for dysuria, hematuria, nocturia, decreased force/flow and genital discharge Skin/Breast Details: Negative for itching, rash, hives, Raynaud's symptoms, sun sensitivity, and skin cancer Neuro Details: Negative for epilepsy, palsy, stroke, changes in speech, tingling and weakness Psych Details: Anxious about the prednisone dosing. Depression seem stable with current treatment. Endo Details: Negative for polyuria and polydypsia Alber/Lymph Details: Negative for excessive bruising or bleeding. Physical Exam Vital Signs: Last Vital Signs Temp 97.4 F 03/28/23 10:10 Pulse 62 03/28/23 10:10 BP 122/62 03/28/23 10:10 Pulse Ox 96 03/28/23 10:10 Oxygen Delivery Method Room Air 03/28/23 10:10 BMI result Body Mass Index 26.3 APPEARANCE: Patient in no acute distress EYES no redness, pupils equal and reactive to light, eyelids normal. Well-healed scar on the left preauricular region where she had the biopsy. No tenderness in the temporal artery. EARS: External ear normal, canal clear and tympanic membrane normal. NOSE/SINUS: Airflow through both nares, no nasal discharge, no bleeding THROAT: Oral mucosa moist, no ulcerations NECK: No thyromegaly or masses, no adenopathy, trachea midline. HEART: Regulrar rhythm, S1-S2 heard, no murmurs, rubs or gallops. LUNG: Clear to percussion and auscultation ABD: Normal bowel sounds, no organomegaly, masses or tenderness. EXTREMITIES: No edema, no calf tenderness, normal peripheral pulses. NEURO: Oriented and alert x3. No focal weakness. Reflexes symmetric. Gait normal. SKIN: No inflammatory or neoplastic lesions. Normal color and turgor JOINT EXAM:.?? Cervical Spine:.? Slight decrease in range of motion but without pain; no tenderness. Thoracic Spine:.? No scoliosis.? No tenderness on palpation. Lumbar Spine:.? Alignment normal.? Full range of motion without pain, no tenderness. Chest Wall:.? No tenderness, swelling, increased warmth or erythema. Hands:.? Normal pain-free range of motion without tenderness, swelling, increased warmth or erythema. Able to make a full fist and has a good animal trainer supervisor strength. Wrists:.? Normal pain-free range of motion without tenderness, swelling, increased warmth or erythema. Elbows:. Normal pain-free range of motion without tenderness, swelling, increased warmth or erythema. Shoulders: Right: Slight discomfort with extremes of normal range of motion. No tenderness, weakness or adenopathy. Left:Full range of motion without pain. No tenderness, weakness, swelling, increased warmth or erythema. Hips:.? Full range of motion without pain. Hip bursa:.? No tenderness. Knees:.?? Normal pain-free range of motion with slight patellofemoral crepitus. No effusion, tenderness, swelling, increased warmth or erythema.? Ankles:.? Normal pain-free range of motion without tenderness, swelling, increased warmth or erythema. Feet:.? Mild 1st MTP bony enlargement without tenderness. Elsewhere the joints have been pain-free range of motion without tenderness, swelling, increased warmth or erythema. Tender points:.? Mild tenderness to digital palpation at the right trapezius, both lateral epicondyles, right greater trochanter area. ? Results Reviewed Results Reviewed: Laboratory Tests 02/22/23 02/22/23 03/12/23 09:13 09:13 10:37 ESR 2 2 C-Reactive Protein < 0.10 03/12/23 10:37 ESR C-Reactive Protein < 0.10 Assessment & Plan Assessment & Plan (1) Polymyalgia rheumatica: Comment: Onset 2018: Hip and groin pain. Quick response to oral prednisone. No GCA symptoms. Code(s): M35.3 - Polymyalgia rheumatica (2) [facility] systemic steroid user: Code(s): Z79.52 - [facility] (current) use of systemic steroids (3) Giant cell arteritis: Code(s): M31.6 - Other giant cell arteritis Plan Finally the headache symptoms seem to have subsided although that took quite a while on the higher dose prednisone. Her ESR which had been normal for years was elevated when the headache started so that is why I treated her for GCA. The subsequent temporal artery biopsy was negative, not an uncommon occurrence in that disorder. None the less I think it is likely she does have giant cell arteritis and we will treat her as such. Given the prolonged use of the higher dose prednisone I think it is appropriate we try to pursue the steroid sparing affect by adding Actemra. We reviewed potential side effects of that medication. I gave him some written information to review. We will check hepatitis serologies and T spot testing and if those look okay we will pursue prior authorization of the Actemra. In the meantime she will attempt another taper the prednisone to 30 mg daily next week. We will arrange for follow-up in 2 months, hopefully by then she will be on regular doses of the Actemra. Her history, exam and discussion of the treatments took 34 minutes. Orders: Orders Comprehensive Met. Panel Today M31.6 - Other giant cell arteritis C Reactive Protein Today M31.6 - Other giant cell arteritis Erythrocyte Sedimentation Rate Today M31.6 - Other giant cell arteritis Hepatitis A,B,C Profile Today M31.6 - Other giant cell arteritis Complete Blood Count Auto Diff Today M31.6 - Other giant cell arteritis T Spot TB Today M31.6 - Other giant cell arteritis Medications: Changed From prednisone 4 tab in AM and 2 tab in PM 180 tabs 1RF M35.3 - Polymyalgia rheumatica To prednisone 40 mg; M35.3 - Polymyalgia rheumatica Coding Level of Care Code Est Pt Level 4 (95824) Diagnoses Polymyalgia rheumatica M35.3 [facility] systemic steroid user Z79.52 Giant cell arteritis M31.6
[2023-03-28 10:10] VITALS: BP 122/62; PULSE 62; TEMP 36.3; O2SAT 96; BMI 26.3
== END 2023-03-28 11:00 | disposition home or self-care (01) ==
PROVIDERS: PCP Internal Medicine; Visit Provider Internal Medicine Rheumatology
DX: M35.3 Polymyalgia rheumatica (principal); Z79.52 Long term (current) use of systemic steroids; M31.6 Other giant cell arteritis
CPT/HCPCS: 99214

== ENCOUNTER → 2023-03-28 09:49 | Outpatient (BNVA) | payer MEDICARE, SELFPAY | PROVIDERS: PCP Internal Medicine; Visit Provider Internal Medicine Rheumatology | DX: M35.3 Polymyalgia rheumatica (principal); M31.6 Other giant cell arteritis; Z79.52 Long term (current) use of systemic steroids; Z11.59 Encounter for screening for other viral diseases; Z72.89 Other problems related to lifestyle | CPT/HCPCS: 36415; 80053; 84439; 84443; 84481; 85025; 85652; 86140; 86481; 86704; 86706; 86709; 86803; 87340; 99212 ==

== ENCOUNTER 2023-03-28 11:10 | Outpatient (REF) | payer MEDICARE, SELFPAY ==
[2023-03-28 13:14] LABS: MANUAL DIFF FLAG NO
[2023-03-28 13:30] LABS: Basophils Absolute Auto 0.1 X10*3/uL (0.0-0.2); Basophils Percent Auto 0.7 % (0-2); Eosinophils Percent Auto 0.2 % (0-4); Hematocrit 48.5 % (37.0-47.0); Hemoglobin 16.3 g/dl (12.0-16.0); Imm Gran Abs Auto 0.36 X10*3/uL (0.00-0.03); Imm Gran Pct Auto 2.9 % (0.0-0.4); Lymphocytes Absolute Auto 0.9 X10*3/uL (1.2-4.9); Lymphocytes Percent Auto 7.3 % (20-40); Mean Corpuscular HGB Conc 33.6 g/dl (31.0-35.0); Mean Corpuscular Hemoglobin 33.1 pg (27.0-33.0); Mean Corpuscular Volume 98.6 fL (80.0-98.0); Mean Platelet Volume 9.7 fL (9.4-12.3); Monocytes Absolute Auto 0.5 X10*3/uL (0.1-1.2); Monocytes Percent Auto 4.1 % (2-11); Neutrophils Absolute Auto 10.4 x10*3/uL (2.0-8.3); Neutrophils Percent Auto 84.8 % (45-73); Platelet Count 232 X10*3/uL (160-400); Red Blood Count 4.92 X10*6/uL (4.20-5.50); Red Cell Distribution Width 13.6 % (11.0-16.0); White Blood Count 12.3 X10*3/uL (4.8-10.8)
[2023-03-28 14:08] LABS: Alanine Aminotransferase 26 U/L (0-31); Albumin Level 3.9 g/dL (3.5-5.0); Alkaline Phosphatase 37 U/L (39-117); Anion Gap 11 (12-20); Aspartate Amino Transferase 22 U/L (5-31); Bilirubin Total 0.4 mg/dL (0.0-1.0); Blood Urea Nitrogen 23 mg/dL (9-16); C Reactive Protein 0.24 mg/dL (< or = 0.50); Carbon Dioxide 25 mmol/L (22-29); Chloride 107 mmol/L (96-108); Estimated Glomerular Filt Rate > 60; Glucose Random 96 mg/dL (60-115); Potassium 4.4 mmol/L (3.3-5.1); Sodium 139 mmol/L (135-145); Total Protein 6.7 g/dL (6.5-8.0)
[2023-03-28 14:10] LABS: Free T4 (Free Thyroxine) 0.95 ng/dL (0.71-1.85); Thyroid Stimulating Hormone 0.72 uIU/mL (0.32-4.0)
[2023-03-28 14:11] LABS: Erythrocyte Sedimentation Rate 3 MM/HR (0-20)
[2023-03-29 05:59] LABS: HBS Num1 17.19 mIU/mL (0-7.99); HBc Num1 0.05 S/CO (0.00-0.79); HBsAGNum1 0.27 S/CO (0.00-0.99); Hepatitis A Antibody IgM 0.16 Index (0-0.79); Hepatitis B Core Antibody Nonreactive (Nonreactive); Hepatitis B Surface Antigen Negative (Negative); ~HepC Num1 0.04 S/CO (0.00-0.79); ~Hepatitis A Antibody IgM Nonreactive (Nonreactive); ~Hepatitis B Surface Antibody REACTIVE (Nonreactive); ~Hepatitis C Antibody Nonreactive (Nonreactive)
[2023-03-29 18:29] LABS: Triiodothyronine T3 Free 2.4 pg/mL (2.3-4.2)
[2023-03-31 00:13] LABS: TS Negative Control Passed; TS Panel A 0; TS Panel B 0; TS Positive Control Passed; TSpotTB Negative (Negative)
== END 2023-03-28 11:11 | disposition home or self-care (01) ==
LOC: HO.10HDL 11:10
PROVIDERS: Absent Provider Family Medicine; Visit Provider Internal Medicine Rheumatology
DX: Z13.89 Encounter for screening for other disorder (principal)
CPT/HCPCS: 36415; 80053; 84439; 84443; 84481; 85025; 85652; 86140; 86481; 86704; 86706; 86709; 86803; 87340

== ENCOUNTER → 2023-04-10 12:56 | Outpatient (BNVA) | payer MEDICARE, SELFPAY | PROVIDERS: PCP Internal Medicine; Visit Provider Internal Medicine Rheumatology | DX: M35.3 Polymyalgia rheumatica (principal) | CPT/HCPCS: 99211 ==

== ENCOUNTER 2023-04-19 10:28 | Outpatient (AMB) | payer MEDICARE, SELFPAY ==
--- NOTE | 2023-04-19 10:41 | MHC.OFFVIS ---
Intake Vital Signs 04/19/23 10:43 Height 5 ft 6.5 in Weight 165 lb 12.602 oz BMI 26.4 BP 106/62 Blood Pressure Location Rt radial Position Sitting Pulse 73 Pulse Source Pulse Oximeter Temp 97.3 F Temp Source Skin Pulse Oximetry (%) 97 Oxygen Delivery Method Room Air Intake Visit Reasons: PMR Intake Note: Patient here to follow up on PMR. Requesting Prednisone 1 mg for future tapering. Customer Project Manager Required: No Accompanied by: Self / Same As Patient Allergies penicillin V Allergy (Intermediate, Verified 04/19/23 10:42) Rash HPI HPI Comments History of Present Illness Details The patient returns for evaluation of her giant cell arteritis. She has taken 2 doses so far of the Actemra. This has not caused her any side effects. She has presently been trying to taper the prednisone. It is currently down to 15 mg in the evening and 5 mg in the morning. She does not have any further headache. There is occasional discomfort in the lower jaw region bilaterally. This is not associated with chewing however. There has been no visual disturbance. She does not have any shoulder or hip pain. [facility] Medical History (Updated 04/19/23 @ 07:54 by Suman Gresham MD) Polymyalgia rheumatica Surgical History Hx of surgical biopsy H/O tubal ligation H/O cataract removal with insertion of prosthetic lens History of knee replacement procedure of right knee Family History Father Leukemia Mother Stroke Social History Alcohol intake: current Alcohol intake frequency: a few times a week Alcohol type: wine Patient Tobacco Use Status: Former Tobacco user Quit Date: 1985 Tobacco use type: Cigarette Years Smoked: 20 Review of Systems Const Details: She is less physically active than prior to the diagnosis of GCA. She is trying to daily walk but had been much more successful at moving about before the symptoms of GCA developed. She relates that she does not have discomfort with activity but feels very fatigued afterwards. Negative for appetite change, weight change, fever, chills, malaise Eyes Details: Negative for vision change, dry eyes,headaches and dizziness Endo Details: Negative for polyuria and polydypsia Alber/Lymph Details: Negative for excessive bruising or bleeding. Physical Exam Vital Signs: Last Vital Signs Temp 97.3 F 04/19/23 10:43 Pulse 73 04/19/23 10:43 BP 106/62 04/19/23 10:43 Pulse Ox 97 04/19/23 10:43 Oxygen Delivery Method Room Air 04/19/23 10:43 BMI result Body Mass Index 26.4 APPEARANCE: Patient in no acute distress EYES no redness, pupils equal and reactive to light, eyelids normal. Well-healed scar on the left preauricular region where she had the biopsy. No tenderness in the temporal artery. THROAT: Oral mucosa moist, no ulcerations NECK: No parotid or submandibular tenderness. No thyromegaly or masses, no adenopathy, trachea midline. EXTREMITIES: No edema, no calf tenderness, normal peripheral pulses. JOINT EXAM:.?? Cervical Spine:.? Slight decrease in range of motion but without pain; no tenderness. Thoracic Spine:.? No scoliosis.? No tenderness on palpation. Lumbar Spine:.? Alignment normal.? Full range of motion without pain, no tenderness. Chest Wall:.? No tenderness, swelling, increased warmth or erythema. Hands:.? Normal pain-free range of motion without tenderness, swelling, increased warmth or erythema. Able to make a full fist and has a good barrel marker strength. Wrists:.? Normal pain-free range of motion without tenderness, swelling, increased warmth or erythema. Elbows:. Normal pain-free range of motion without tenderness, swelling, increased warmth or erythema. Shoulders: Right: Slight discomfort with extremes of normal range of motion. No tenderness, weakness or adenopathy. Left:Full range of motion without pain. No tenderness, weakness, swelling, increased warmth or erythema. Hips:.? Full range of motion without pain. Hip bursa:.? No tenderness. Knees:.?? Normal pain-free range of motion with slight patellofemoral crepitus. No effusion, tenderness, swelling, increased warmth or erythema.? Ankles:.? Normal pain-free range of motion without tenderness, swelling, increased warmth or erythema. Feet:.? Mild 1st MTP bony enlargement without tenderness. Elsewhere the joints have been pain-free range of motion without tenderness, swelling, increased warmth or erythema. Tender points:? Mild tenderness to digital palpation at the right trapezius, both lateral epicondyles, right greater trochanter area. ? Assessment & Plan Assessment & Plan (1) Giant cell arteritis: Comment: January 2023: headache, scalp tenderness, jaw pain - ESR/crp a bit higher. TA bx negative. prednisone increased with improvement. Actemra added03/2023 Code(s): M31.6 - Other giant cell arteritis Plan Giant cell arteritis with no clear signs of disease activity with the current dose of prednisone and Actemra. So far she has tolerated the Actemra. Further reduction in prednisone dose should be undertaken. I told her in 5 days to drop the prednisone down to 10 mg at night and 5 mg in the morning. After that, every 2 weeks she will drop the evening dose by 1 mg. We will check lab work before her next visit in about 2 months. She will call us with any questions or problems. 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
[2023-04-19 10:43] VITALS: BP 106/62; PULSE 73; TEMP 36.3; O2SAT 97; BMI 26.4
== END 2023-04-19 11:25 | disposition home or self-care (01) ==
PROVIDERS: PCP Internal Medicine; Visit Provider Internal Medicine Rheumatology
DX: M31.6 Other giant cell arteritis (principal)
CPT/HCPCS: 99213

== ENCOUNTER → 2023-04-19 10:28 | Outpatient (BNVA) | payer MEDICARE, SELFPAY | PROVIDERS: PCP Internal Medicine; Visit Provider Internal Medicine Rheumatology | DX: M31.6 Other giant cell arteritis (principal); Z79.52 Long term (current) use of systemic steroids; Z79.899 Other long term (current) drug therapy | CPT/HCPCS: 99212 ==

== ENCOUNTER 2023-05-16 14:28 | Outpatient (REF) | payer MEDICARE, SELFPAY | END 2023-05-16 14:29 | disposition home or self-care (01) | LOC: HO.LAB 14:28 | PROVIDERS: PCP Internal Medicine; Visit Provider Internal Medicine Rheumatology | DX: M31.6 Other giant cell arteritis (principal); Z79.899 Other long term (current) drug therapy | CPT/HCPCS: 36415; 85025; 85652; 86140 ==

== ENCOUNTER 2023-05-23 10:22 | Outpatient (REF) | payer MEDICARE, SELFPAY ==
[2023-05-23 11:22] LABS: Free T4 (Free Thyroxine) 0.94 ng/dL (0.71-1.85); Thyroid Stimulating Hormone 5.81 uIU/mL (0.32-4.0)
[2023-05-24 07:43] LABS: Triiodothyronine T3 Free 2.1 pg/mL (2.3-4.2)
== END 2023-05-23 10:23 | disposition home or self-care (01) ==
LOC: HO.10HDL 10:22
PROVIDERS: Visit Provider Family Medicine
DX: Z79.899 Other long term (current) drug therapy (principal)
CPT/HCPCS: 36415; 84439; 84443; 84481

== ENCOUNTER 2023-06-26 13:35 | Inpatient (IN) | payer MEDICARE, SELFPAY ==
[2023-06-26 14:03] VITALS: BP 122/61; PULSE 82; RESP 16; TEMP 36.8; O2SAT 91
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
[2023-06-26 16:17] VITALS: BMI 26.2
[2023-06-26] MEDS: Acetaminophen 325 MG TABLET 650 MG PO ×2 (16:22→21:55)
[2023-06-26] MEDS: hydrOXYzine HCL 25 MG TABLET PO ×2 (16:48→21:03)
--- NOTE | 2023-06-26 18:16 | P.CONHOSP_ITS ---
History of Present Illness Data of Consult Service Date: 06/26/23 Requesting physician: Frank Aguirre Primary Care Provider: Kay Singletary MD HPI Reason for consult: medical h&p 78-year-old female with history of polymyalgia rheumatica, hypothyroidism, giant cell arteritis and major depressive disorder admitted to Psychiatry from [facility] with consult placed hospitalist service for medical H and P. The patient was admitted to [facility] Trauma Team following suicide attempt with self-inflicted stab wounds to the neck and left forearm. The left neck wound was superficial in close bedside. Given the extensive injury to the volar aspect of the forearm, she under went wound exploration in the OR on 06/02 as well as debridement and primary repair of the ulnar artery, repair of the median nerve injury with nerve allograft and FDS/FDP tendon repair. She was also followed by psych/crisis recommending inpatient psych commitment. Esophagus was evaluated following trauma with barium swallow which was unremarkable. CTA of the neck showed large laceration and left neck below the mandibular body with stranding of bubbles of air extending into the left posterolateral neck and sternocleidomastoid muscle into the retropharynx and medial to the left carotic sheath but no discrete measurable hematoma seen or any evidence of active extravasation noted. She was then returned to the OR on 06/07 for excisional debridement and again on 06/22 for placement of Integra graft. She was medically cleared for discharge from Hand surgery perspective on 06/22 with instructions for dressing changes to only be done by hand surgery at follow-up appointment on 07/03 with nonweightbearing status in the left upper extremity until follow-up. She has no complaints at this time. Denies any alcohol use, illicit drug use, or cigarette smoking. Reports pain is well controlled with Tylenol. Hematology studies and chemistries were stable throughout admission. No significant blood loss anemia. No evidence of infection during admission. Review of Systems Review of Systems: General: No fevers, malaise, unintentional weight loss HEENT: No blurred vision, diplopia. No sore throat, nasal congestion, rhinorrhea, sinus pain, ear pain Cardiovascular: No chest pain, palpitations, or leg edema Respiratory: No shortness of breath, wheezing, cough GI: +constipation. No abdominal pain, nausea, vomiting, diarrhea, constipation, melena, hematochezia : No dysuria, hematuria, increased urinary frequency, decreased urinary output MSK: No myalgia, back pain. +wrist injury Neuro: No headaches, weakness, paresthesias Skin: No rashes or lesions [facility] Medical History (Updated 06/26/23 @ 18:29 by RASHID Dillon) Giant cell arteritis Hypothyroidism Depressive disorder Hypercholesterolemia manager terminal systemic steroid user Polymyalgia rheumatica Family History Father Leukemia Mother Stroke Surgical History Hx of surgical biopsy H/O tubal ligation H/O cataract removal with insertion of prosthetic lens History of knee replacement procedure of right knee Household Members: Spouse Housing: House Do you presently have visiting nurse or other home services: No Alcohol intake: current Alcohol intake frequency: a few times a week Alcohol type: wine Patient Tobacco Use Status: Former Tobacco user Quit Date: 04/06/2023 Tobacco use type: Cigarette Years Smoked: 20 Smoked in Last 30 Days: No e-Cigarette/Vaping Use: Never Used Patient Interested in Nicotine Replacement: No Patient Given Instructions on How to Stop Smoking: No Second Hand Smoke Exposure: No Use of substances other than those prescribed or required for medical reasons: No Currently Displaying Signs/Symptoms of Drug Intoxication Withdrawal: No Any prior treatment program specific to substance use: No Have you been hit, kicked, punched, or otherwise hurt by someone within the past year? If so, by whom?: No Do you feel safe in your current relationship?: Yes Is there a partner from a previous relationship who is making you feel unsafe now?: No Are you made to feel afraid or neglected: No Advance Directives: No Advance Directives Information Provided: Yes Do you have thoughts of harming others: None Do you have a plan to hurt others: No Plan Recently lost weight without trying: No How much weight loss: Not applicable Eating poorly because of decreased appetite: No Nutrition screen score: 0 Nutrition Risks: No Nutritional Risk Patient : No : No Poor oral hygiene: No Meds Allergies Allergy/AdvReac Type Severity Reaction Status Date / Time penicillin V Allergy Intermediate Rash Verified 04/19/23 10:42 Active Medications: Current Medications Acetaminophen (Acetaminophen 325 Mg Tablet) 650 mg PO Q6H PRN PRN Reason: Headache/Pain Mild Scale (1-3) Al Hydroxide/Mg Hydroxide (Magnesium Hydrox/Alum Hydrox 30 Ml Oral.Susp) 30 ml PO Q6H PRN PRN Reason: Heartburn/Nausea Aripiprazole (Aripiprazole 5 Mg Tablet) 5 mg PO DAILY [facility] Ascorbic Acid (Ascorbic Acid 500 Mg Tablet) 500 mg PO BID [facility] Bisacodyl (Bisacodyl 10 Mg Supp.Rect) 10 mg GA DAILY PRN PRN Reason: Constipation Calcium Carbonate (Calcium Carbonate 750 Mg Tab.Chew) 750 mg PO TID PRN PRN Reason: GI Upset Docusate Sodium (Docusate Sodium 100 Mg Capsule) 100 mg PO BID [facility] Hydroxyzine HCl (Hydroxyzine Hcl 25 Mg Tablet) 25 mg PO Q6H PRN PRN Reason: Anxiety Last Admin: 06/26/23 16:48 Dose: 25 mg Hydroxyzine HCl (Hydroxyzine Hcl 25 Mg Tablet) 25 mg PO QID ARLETTE Last Admin: 06/26/23 17:21 Dose: Not Given Levothyroxine Sodium (Levothyroxine Sodium 88 Mcg Tablet) 88 mcg PO DAILY@0600 [facility] Lorazepam (Lorazepam 0.5 Mg Tablet) 0.5 mg PO BID PRN PRN Reason: Anxiety Magnesium Hydroxide (Milk Of Magnesia 30 Ml Oral.Susp) 30 ml PO DAILY PRN PRN Reason: Constipation Melatonin (Melatonin 3 Mg Tablet) 3 mg PO BEDTIME [facility] Multivitamins/Vitamin C (Multivitamin Tablet) 1 tab PO DAILY [facility] Non-Formulary Medication (Enoxaparin) 30 mg SUBCUT BID [facility] Non-Formulary Medication (Tocilizumab [Actemra]) 162 mg SUBCUT QWEEK [facility] Non-Formulary Medication (Estradiol) 1 packet TRANSDERMA BEDTIME [facility] Polyethylene Glycol (Polyethylene Glycol 3350 17 Gm Powd.Pack) 17 gm PO DAILY [facility] Prednisone (Prednisone 1 Mg Tablet) 4 mg PO DAILY [facility] Prednisone (Prednisone 10 Mg Tablet) 10 mg PO DAILY [facility] Senna (Sennosides 8.6 Mg Tablet) 8.6 mg PO DAILY [facility] Simethicone (Simethicone 80 Mg Tab.Chew) 80 mg PO TID PRN PRN Reason: Gas Trazodone HCl (Trazodone Hcl 50 Mg Tablet) 50 mg PO BEDTIME MRX1 PRN PRN Reason: Insomnia Trazodone HCl (Trazodone Hcl 100 Mg Tablet) 100 mg PO BEDTIME ARLETTE Venlafaxine HCl (Venlafaxine Hcl Er 75 Mg Cap.Er.24h) 75 mg PO DAILY ARLETTE Venlafaxine HCl (Venlafaxine Hcl Er 150 Mg Cap.Er.24h) 150 mg PO DAILY [facility] Home Medications Medication Instructions Recorded Confirmed Last Taken Type Betaine With Pepsin 650/162 Mg 1 PO TIDWM 06/26/23 Unknown History Lacto 2 cap PO DAILY 06/26/23 06/26/23 Unknown History 19-B.breve,long-L.lactis-P.acidi 25 billion cell capsule,del rel (Jarro-Dophilus EPS) Saccharomyces boulardii 250 mg 250 mg PO BID 06/26/23 06/26/23 Unknown History capsule Time Release T3 10 Mg 10 mg PO DAILY 06/26/23 Unknown History acetaminophen 325 mg capsule 650 mg PO Q4H PRN Pain 06/26/23 06/26/23 Unknown History aripiprazole 5 mg tablet (Abilify) 5 mg PO DAILY 06/26/23 06/26/23 Unknown History ascorbic acid (vitamin C) 250 mg 500 mg PO BID 06/26/23 06/26/23 Unknown History tablet bisacodyl 10 mg rectal suppository 10 mg GA DAILY PRN Constipation 06/26/23 06/26/23 Unknown History calcium carbonate 250 mg chewable 500 mg PO TID 06/26/23 06/26/23 Unknown History tablet docusate sodium 100 mg capsule 100 mg PO BID 06/26/23 06/26/23 Unknown History enoxaparin 30 mg/0.3 mL 30 mg subcut BID 06/26/23 06/26/23 Unknown History subcutaneous solution estradiol 0.25 mg/0.25 gram (0.1 1 packet transdermal BEDTIME 06/26/23 06/26/23 Unknown History %) transdermal gel packet hydroxyzine pamoate 25 mg capsule 25 mg PO QID 06/26/23 06/26/23 Unknown History levothyroxine 88 mcg tablet 88 mcg PO DAILY 06/26/23 06/26/23 Unknown History (Unithroid) lorazepam 0.5 mg tablet 0.5 mg PO BID 06/26/23 06/26/23 Unknown History melatonin 3 mg tablet 3 mg PO BEDTIME 06/26/23 06/26/23 Unknown History polyethylene glycol 3350 17 gram 17 g PO DAILY 06/26/23 06/26/23 Unknown History oral powder packet (Miralax) prednisone 1 mg tablet 4 mg PO DAILY 06/26/23 06/26/23 Unknown History prednisone 5 mg tablet 10 mg PO DAILY 06/26/23 06/26/23 Unknown History sennosides 8.6 mg tablet (senna) 8.6 mg PO DAILY 06/26/23 06/26/23 Unknown History simethicone 80 mg chewable tablet 80 mg PO TID 06/26/23 06/26/23 Unknown History tocilizumab 162 mg/0.9 mL 162 mg subcut TU 06/26/23 06/26/23 Unknown History subcutaneous syringe (Actemra) trazodone 50 mg tablet 100 mg PO BEDTIME 06/26/23 06/26/23 Unknown History venlafaxine 150 mg 150 mg PO DAILY 06/26/23 06/26/23 Unknown History capsule,extended release 24 hr venlafaxine 37.5 mg 75 mg PO DAILY 06/26/23 06/26/23 Unknown History capsule,extended release 24 hr vitamin A 10,000 unit tablet 20,000 unit PO DAILY 06/26/23 06/26/23 Unknown History vitamin B complex 1 tab PO DAILY 06/26/23 06/26/23 Unknown History Physical Exam Vital Signs and Narrative: Vital Signs: Last Vital Signs Temp 98.2 F 06/26/23 14:03 Pulse 82 06/26/23 14:03 Resp 16 06/26/23 14:03 BP 122/61 06/26/23 14:03 Pulse Ox 91 L 06/26/23 14:03 O2 Del Method Room Air 06/26/23 14:03 BMI result Body Mass Index 26.2 Assessment and Plan (1) Suicide and self-inflicted injury: Status: Acute (2) Routine medical exam: Status: Acute Plan 78-year-old female with history of polymyalgia rheumatica, hypothyroidism, giant cell arteritis and major depressive disorder admitted to Psychiatry from [facility] with consult placed hospitalist service for medical H and P. #Mood disorder with SI -plan per psychiatry #Laceration left forearm -extensive injury to volar aspect of the left forearm requiring multiple operations to repair ulnar artery, a median nerve injury with nerve allograft in FDS/FDP tendon repair. Also underwent multiple wound debridements and placement of Integra graft -keep current dressing in place until follow-up with hand surgeon on 07/03 (per RN). If patient remains inpatient at this time, recommend consult to Dr. Douglas, hand surgeon at [facility], to coordinate care with [facility] hand surgery -Tylenol for pain management p.r.n. -contact hospitalist service for any worsening pain, erythema, warmth, loss of sensation # hypothyroidism -continue levothyroxine and time released for free T3 from home # giant cell arteritis/polymyalgia rheumatica -continue prednisone -continue actemra inj, ubiquinone Thank you for allowing me to participate in this consult. Signing off at this time. Please do not hesitate to call for further questions or for any acute medical issues
[2023-06-26 19:45] VITALS: BP 137/63; PULSE 56; TEMP 36.1; O2SAT 96
[2023-06-26] MEDS: Melatonin 3 MG TABLET PO (21:02)
[2023-06-26] MEDS: Docusate Sodium 100 MG CAPSULE PO (21:02)
[2023-06-26] MEDS: traZODone HCL 100 MG TABLET PO (21:03)
[2023-06-27] MEDS: predniSONE 1 MG TABLET 4 MG PO (04:01)
[2023-06-27] MEDS: predniSONE 10 MG TABLET PO (04:02)
[2023-06-27] MEDS: Acetaminophen 325 MG TABLET 650 MG PO ×2 (04:19→12:32)
[2023-06-27] MEDS: hydrOXYzine HCL 25 MG TABLET PO ×5 (05:15→20:56)
[2023-06-27 06:00] VITALS: BP 123/57; PULSE 81; RESP 18; TEMP 36.8; O2SAT 94
[2023-06-27] MEDS: Ascorbic Acid 500 MG TABLET PO ×2 (08:34→20:56)
[2023-06-27] MEDS: Venlafaxine HCl ER 150 MG CAP.ER.24H PO (08:34)
[2023-06-27] MEDS: polyethylene glycoL 3350 17 GM POWD.PACK PO (08:34)
[2023-06-27] MEDS: Venlafaxine HCl ER 75 MG CAP.ER.24H PO (08:34)
[2023-06-27] MEDS: Multivitamin TABLET 1 TAB PO (08:35)
[2023-06-27] MEDS: ARIPiprazole 5 MG TABLET PO (08:35)
[2023-06-27] MEDS: Docusate Sodium 100 MG CAPSULE PO ×2 (08:35→20:56)
--- NOTE | 2023-06-27 08:50 | P.HPPS_ITS ---
HPI Date of Service: 06/27/23 Chief Complaint: Major depressive order, recurrent, severe Sources of Information: patient interviewed, chart reviewed and crisis/core team assessment reviewed HPI Subjective Notes: Chris Warning, Conditional Voluntary and 3 Day Narrative: The patient is a 78-year-old female, , with grown up children, referred from [facility] medical unit for continuation of care. Pt is a 78 yo female w/ PMHX of hypothyroidism, polymyalgia rheumatica, GCA, and past psychiatric history of depression who presented to the ED on 06/01/23 as a category I trauma after self-inflicting lacerations to her L. wrist and L. neck. She was admitted to the trauma service for management of hemorrhagic shock and extensive lacerations requiring operative repair. For her wrist wound, she underwent ulnar artery ligation in the ED on 06/01, and then repair of her artery, tendon, nerve on 06/02. For her neck wound, she underwent repair and wound closure in the OR on 06/02. Psychiatry was consulted due to self-inflicted wounds and concern for suicide attempt. On admission, the patient reported that she felt remorseful of trying to hurt herself, she acknowledged a history of depression with depressed mood, anhedonia, lack of energy feelings of hopelessness. She adamantly denies active suicidal ideation and she is able to contract for safety. She feels very remorseful of the suicidal attempt. We discussed her treatment options and she stated that she is not having any side effects at this moment with the current medication. . The patient adamantly denies psychotic symptoms, past history of david or any other psychiatric symptoms. She admitted That she was very depressed in the past and she did a stupid mistake . she was able to contract for safety, she appeared not to have any cognitive impairment at this moment and she was future oriented able to contract for safety. She signed a 3 day notice. Past Psychiatric History: The patient denies prior psychiatric admissions, she acknowledged history of depression that worsened in the last months. Medical Evaluation Reviewed: Yes [facility] Medical History Giant cell arteritis Hypothyroidism Depressive disorder Hypercholesterolemia intermediate systemic steroid user Polymyalgia rheumatica Surgical History Hx of surgical biopsy H/O tubal ligation H/O cataract removal with insertion of prosthetic lens History of knee replacement procedure of right knee Family History: Denies Social History: with Grown up children, good social support. Substance History: denies Trauma History: denies Diagnostics Vital Signs (24Hr): Vital Signs - 24 hr 06/26/23 14:03 06/26/23 19:45 Temperature 98.2 F 96.9 F Pulse Rate 82 56 Respiratory Rate 16 Blood Pressure 122/61 137/63 Pulse Oximetry 91 L 96 Oxygen Delivery Method Room Air Room Air BMI result Body Mass Index 26.2 Meds/Allergies Meds Home Medications Medication Instructions Recorded Confirmed Type Betaine With Pepsin 650/162 Mg 1 PO TIDWM 06/26/23 History Lacto 2 cap PO DAILY 06/26/23 06/27/23 History 19-B.breve,long-L.lactis-P.acidi 25 billion cell capsule,del rel (Jarro-Dophilus EPS) Saccharomyces boulardii 250 mg 250 mg PO BID 06/26/23 06/26/23 History capsule Time Release T3 10 Mg 10 mg PO DAILY 06/26/23 History acetaminophen 325 mg capsule 650 mg PO Q4H PRN Pain 06/26/23 06/26/23 History aripiprazole 5 mg tablet (Abilify) 5 mg PO DAILY 06/26/23 06/26/23 History ascorbic acid (vitamin C) 250 mg 500 mg PO BID 06/26/23 06/26/23 History tablet bisacodyl 10 mg rectal suppository 10 mg IN DAILY PRN Constipation 06/26/23 06/26/23 History calcium carbonate 250 mg chewable 500 mg PO TID 06/26/23 06/26/23 History tablet docusate sodium 100 mg capsule 100 mg PO BID 06/26/23 06/26/23 History enoxaparin 30 mg/0.3 mL 30 mg subcut BID 06/26/23 06/26/23 History subcutaneous solution estradiol 0.25 mg/0.25 gram (0.1 1 packet transdermal BEDTIME 06/26/23 06/27/23 History %) transdermal gel packet hydroxyzine pamoate 25 mg capsule 25 mg PO QID 06/26/23 06/26/23 History levothyroxine 88 mcg tablet 88 mcg PO DAILY 06/26/23 06/27/23 History (Unithroid) lorazepam 0.5 mg tablet 0.5 mg PO BID 06/26/23 06/26/23 History melatonin 3 mg tablet 3 mg PO BEDTIME 06/26/23 06/26/23 History polyethylene glycol 3350 17 gram 17 g PO DAILY 06/26/23 06/26/23 History oral powder packet (Miralax) prednisone 1 mg tablet 4 mg PO DAILY 06/26/23 06/26/23 History prednisone 5 mg tablet 10 mg PO DAILY 06/26/23 06/26/23 History sennosides 8.6 mg tablet (senna) 8.6 mg PO DAILY 06/26/23 06/26/23 History simethicone 80 mg chewable tablet 80 mg PO TID 06/26/23 06/26/23 History tocilizumab 162 mg/0.9 mL 162 mg subcut TU 06/26/23 06/27/23 History subcutaneous syringe (Actemra) trazodone 50 mg tablet 100 mg PO BEDTIME 06/26/23 06/26/23 History venlafaxine 150 mg 150 mg PO DAILY 06/26/23 06/26/23 History capsule,extended release 24 hr venlafaxine 37.5 mg 75 mg PO DAILY 06/26/23 06/26/23 History capsule,extended release 24 hr vitamin A 10,000 unit tablet 20,000 unit PO DAILY 06/26/23 06/26/23 History vitamin B complex 1 tab PO DAILY 06/26/23 06/26/23 History Allergies Allergies Allergy/AdvReac Type Severity Reaction Status Date / Time penicillin V Allergy Intermediate Rash Verified 04/19/23 10:42 Mental Status Exam Mental Status Exam Patient Appearance: Well Grooomed and Appropriate Patient Orientation: Person and Situation Level of Consciousness: Awake and Appropriate Patient Behavior: Guarded and Passive Mood Description: Withdrawn Affect Description: Constricted Patient Cognition Impaired: Yes Ability to Follow Directions: Good Speech Pattern: Clear Hallucinations: None Delusions: Not Present Thought Process: Distracted and Evasive Thought Content: positive for [place] and positive for Poverty of Content Judgement: Fair Assessment & Plan Assessment & Plan (1) Major depressive disorder: Status: Acute Code(s): F32.9 - Major depressive disorder, single episode, unspecified Plan the patient is a 78-year-old female, , with a past history of major depressive disorder who try to kill herself by stabbing herself in the neck and her Anthony the require several surgical repair a shins. She had a history of depression with neurovegetative symptoms for the last 2 months that worsened to the point that she was suicidal. She was medically treated, with several surgeries and referred to this facility for psychiatric stabilization. Plan 1. Gather collateral information. 2. Continue with antidepressants. 3. Continue with medical follow-up. 4. 50 minute checks. 5. Reassessment results. Patient educated on: diagnosis Informed Consent: further education needed Reason for continued inpatient stay Substantial Risk for: inability to function, rapid decompensation and med/psych decompensation Statement Statement: I have reviewed the history and physical and performed a pertinent examination on my patient. No changes have occurred unless specified. If the History and Physical was not performed prior to admission, the Hospitalist's service will be consulted for completing the admission physical. Time Spent With Patient Time: Total time managing care of this patient today __45__ minutes.
[2023-06-27 19:57] VITALS: BP 145/66; PULSE 58; RESP 16; TEMP 37; O2SAT 96
[2023-06-27] MEDS: Melatonin 3 MG TABLET PO (20:56)
[2023-06-27] MEDS: traZODone HCL 100 MG TABLET PO (20:56)
[2023-06-28] MEDS: predniSONE 1 MG TABLET 4 MG PO (02:13)
[2023-06-28] MEDS: predniSONE 10 MG TABLET PO (02:13)
[2023-06-28] MEDS: Acetaminophen 325 MG TABLET 650 MG PO ×2 (05:52→20:31)
[2023-06-28 07:00] VITALS: BMI 26.1
[2023-06-28 08:00] VITALS: BP 118/57; PULSE 77; RESP 18; TEMP 36.7; O2SAT 95
[2023-06-28] MEDS: Multivitamin TABLET 1 TAB PO (08:19)
[2023-06-28] MEDS: Docusate Sodium 100 MG CAPSULE PO ×2 (08:19→20:25)
[2023-06-28] MEDS: ARIPiprazole 5 MG TABLET PO (08:20)
[2023-06-28] MEDS: Ascorbic Acid 500 MG TABLET PO ×2 (08:20→20:26)
[2023-06-28] MEDS: Venlafaxine HCl ER 150 MG CAP.ER.24H PO (08:20)
[2023-06-28] MEDS: Venlafaxine HCl ER 75 MG CAP.ER.24H PO (08:20)
[2023-06-28] MEDS: polyethylene glycoL 3350 17 GM POWD.PACK PO (08:20)
[2023-06-28] MEDS: hydrOXYzine HCL 25 MG TABLET PO ×3 (08:20→20:26)
--- NOTE | 2023-06-28 10:23 | P.PNPSI_ITS ---
Subjective Subjective Date of Service: 06/28/23 Reason For Visit: Major depressive order, recurrent, severe Subjective Notes: Conditional Voluntary and 3 Day Interim History: The nursing staff reported the patient had been compliant with medications she slept well last night. She denies active depression or suicidal thoughts. On interview the patient denies new symptoms she states that she feels remorseful of the suicidal attempt. She wants to continue taking her medications as prescribed at home, her is going to bring her medications. No safety concerns at this moment she signed a 3 day notice. Mental Status Exam Mental Status Exam Patient Appearance: Well Grooomed and Appropriate Patient Orientation: Person and Situation Level of Consciousness: Awake and Appropriate Patient Behavior: Guarded and Passive Mood Description: Withdrawn Affect Description: Constricted Patient Cognition Impaired: Yes Ability to Follow Directions: Good Speech Pattern: Clear Hallucinations: None Delusions: Not Present Thought Process: Distracted and Linear Thought Content: positive for Circumstantial Judgement: Fair Diagnostics Vital Signs (24Hr): Vital Signs - 24 hr 06/27/23 19:57 06/28/23 08:00 Temperature 98.6 F 98.0 F Pulse Rate 58 77 Respiratory Rate 16 18 Blood Pressure 145/66 H 118/57 L Pulse Oximetry 96 95 Oxygen Delivery Method Room Air Room Air BMI result Body Mass Index 26.2 Medications Medications Current Medications Acetaminophen (Acetaminophen 325 Mg Tablet) 650 mg PO Q6H PRN PRN Reason: Headache/Pain Mild Scale (1-3) Last Admin: 06/28/23 05:52 Dose: 650 mg Al Hydroxide/Mg Hydroxide (Magnesium Hydrox/Alum Hydrox 30 Ml Oral.Susp) 30 ml PO Q6H PRN PRN Reason: Heartburn/Nausea Aripiprazole (Aripiprazole 5 Mg Tablet) 5 mg PO DAILY [facility] Last Admin: 06/28/23 08:20 Dose: 5 mg Ascorbic Acid (Ascorbic Acid 500 Mg Tablet) 500 mg PO BID [facility] Last Admin: 06/28/23 08:20 Dose: 500 mg Bisacodyl (Bisacodyl 10 Mg Supp.Rect) 10 mg [place] DAILY PRN PRN Reason: Constipation Calcium Carbonate (Calcium Carbonate 750 Mg Tab.Chew) 750 mg PO TID PRN PRN Reason: GI Upset Docusate Sodium (Docusate Sodium 100 Mg Capsule) 100 mg PO BID [facility] Last Admin: 06/28/23 08:19 Dose: 100 mg Hydroxyzine HCl (Hydroxyzine Hcl 25 Mg Tablet) 25 mg PO Q6H PRN PRN Reason: Anxiety Last Admin: 06/27/23 05:15 Dose: 25 mg Hydroxyzine HCl (Hydroxyzine Hcl 25 Mg Tablet) 25 mg PO QID [facility] Last Admin: 06/28/23 08:20 Dose: 25 mg Lorazepam (Lorazepam 0.5 Mg Tablet) 0.5 mg PO BID PRN PRN Reason: Anxiety Magnesium Hydroxide (Milk Of Magnesia 30 Ml Oral.Susp) 30 ml PO DAILY PRN PRN Reason: Constipation Melatonin (Melatonin 3 Mg Tablet) 3 mg PO BEDTIME [facility] Last Admin: 06/27/23 20:56 Dose: 3 mg Multivitamins/Vitamin C (Multivitamin Tablet) 1 tab PO DAILY [facility] Last Admin: 06/28/23 08:19 Dose: 1 tab Pt Own (Tocilizumab [Actemra] 162 Mg/0.9 Ml Syringe) 162 mg SUBCUT Tu@0900 [facility] Non-Formulary Medication (Estradiol) 1 packet TRANSDERMA BEDTIME [facility] Last Admin: 06/27/23 20:59 Dose: 1 packet Pt Own (Unithroid 88 (Mcg 88 Mcg)) 88 mcg PO DAILY@0600 [facility] Last Admin: 06/28/23 05:53 Dose: 88 mcg Pt Own (Lacto19- Bifido-L.Lactis-P. Acid [Jarro-Dophilus Eps] 25 Billion C 2 cap PO DAILY [facility] Last Admin: 06/28/23 09:50 Dose: Not Given Polyethylene Glycol (Polyethylene Glycol 3350 17 Gm Powd.Pack) 17 gm PO DAILY [facility] Last Admin: 06/28/23 08:20 Dose: 17 gm Prednisone (Prednisone 1 Mg Tablet) 4 mg PO DAILY@0200 [facility] Last Admin: 06/28/23 02:13 Dose: 4 mg Prednisone (Prednisone 10 Mg Tablet) 10 mg PO DAILY@0200 [facility] Last Admin: 06/28/23 02:13 Dose: 10 mg Senna (Sennosides 8.6 Mg Tablet) 8.6 mg PO DAILY [facility] Last Admin: 06/28/23 09:51 Dose: Not Given Simethicone (Simethicone 80 Mg Tab.Chew) 80 mg PO TID PRN PRN Reason: Gas Trazodone HCl (Trazodone Hcl 50 Mg Tablet) 50 mg PO BEDTIME MRX1 PRN PRN Reason: Insomnia Trazodone HCl (Trazodone Hcl 100 Mg Tablet) 100 mg PO BEDTIME [facility] Last Admin: 06/27/23 20:56 Dose: 100 mg Venlafaxine HCl (Venlafaxine Hcl Er 75 Mg Cap.Er.24h) 75 mg PO DAILY [facility] Last Admin: 06/28/23 08:20 Dose: 75 mg Venlafaxine HCl (Venlafaxine Hcl Er 150 Mg Cap.Er.24h) 150 mg PO DAILY [facility] Last Admin: 06/28/23 08:20 Dose: 150 mg Allergies Allergies Allergy/AdvReac Type Severity Reaction Status Date / Time penicillin V Allergy Intermediate Rash Verified 04/19/23 10:42 Assessment & Plan Assessment & Plan (1) Major depressive disorder: Status: Acute Code(s): F32.9 - Major depressive disorder, single episode, unspecified Plan the patient is a 78-year-old female, , with a past history of major depressive disorder who try to kill herself by stabbing herself in the neck and her Anthony the require several surgical repair a shins. She had a history of depression with neurovegetative symptoms for the last 2 months that worsened to the point that she was suicidal. She was medically treated, with several surgeries and referred to this facility for psychiatric stabilization. Plan 1. Gather collateral information. 2. Continue with antidepressants. 3. Continue with medical follow-up. 4. 50 minute checks. 5. Reassessment results. Reason for continued inpatient stay Substantial Risk for: inability to function, rapid decompensation and med/psych decompensation Time Spent With Patient Time: Total time managing care of this patient today __20__ minutes.
[2023-06-28 18:00] VITALS: BP 136/61; PULSE 70; RESP 18; TEMP 36.4; O2SAT 95
[2023-06-28] MEDS: traZODone HCL 100 MG TABLET PO (20:26)
[2023-06-28] MEDS: Melatonin 3 MG TABLET PO (20:26)
[2023-06-29] MEDS: predniSONE 10 MG TABLET PO (01:26)
[2023-06-29] MEDS: predniSONE 1 MG TABLET 4 MG PO (01:27)
[2023-06-29] MEDS: Acetaminophen 325 MG TABLET 650 MG PO ×2 (02:56→14:05)
[2023-06-29] MEDS: polyethylene glycoL 3350 17 GM POWD.PACK PO (08:11)
[2023-06-29] MEDS: Multivitamin TABLET 1 TAB PO (08:12)
[2023-06-29] MEDS: Venlafaxine HCl ER 75 MG CAP.ER.24H PO (08:13)
[2023-06-29] MEDS: Venlafaxine HCl ER 150 MG CAP.ER.24H PO (08:13)
[2023-06-29] MEDS: ARIPiprazole 5 MG TABLET PO (08:13)
[2023-06-29] MEDS: Ascorbic Acid 500 MG TABLET PO ×2 (08:13→19:56)
[2023-06-29] MEDS: Docusate Sodium 100 MG CAPSULE PO ×2 (08:13→19:57)
[2023-06-29 08:25] VITALS: BP 119/56; PULSE 84; RESP 18; TEMP 36.6; O2SAT 96
--- NOTE | 2023-06-29 12:15 | P.PNPSI_ITS ---
Subjective Subjective Date of Service: 06/29/23 Reason For Visit: Major depressive order, recurrent, severe Subjective Notes: Conditional Voluntary and 3 Day Interim History: The nursing staff reported the patient had been compliant with medications, she was fully compliant with medication and meals. She slept well last night. On interview the patient denies new symptoms, she is able to contract for safety there is no evidence of thought process disorder, suicidality or cognitive impairment. Today we had a meeting with her and he assured us that he has a good social support. We are planning discharge for Sunday. Mental Status Exam Mental Status Exam Patient Appearance: Well Grooomed and Appropriate Patient Orientation: Person and Situation Level of Consciousness: Awake and Appropriate Patient Behavior: Appropriate and Cooperative Mood Description: Calm Affect Description: Constricted Patient Cognition Impaired: Yes Ability to Follow Directions: Good Speech Pattern: Clear Hallucinations: None Delusions: Not Present Thought Process: Linear Thought Content: positive for Marine and positive for Circumstantial Judgement: Fair Diagnostics Vital Signs (24Hr): Vital Signs - 24 hr 06/28/23 18:00 06/29/23 08:25 Temperature 97.6 F 98 F Pulse Rate 70 84 Respiratory Rate 18 18 Blood Pressure 136/61 119/56 L Pulse Oximetry 95 96 Oxygen Delivery Method Room Air Room Air BMI result Body Mass Index 26.1 Medications Medications Current Medications Acetaminophen (Acetaminophen 325 Mg Tablet) 650 mg PO Q6H PRN PRN Reason: Headache/Pain Mild Scale (1-3) Last Admin: 06/29/23 02:56 Dose: 650 mg Al Hydroxide/Mg Hydroxide (Magnesium Hydrox/Alum Hydrox 30 Ml Oral.Susp) 30 ml PO Q6H PRN PRN Reason: Heartburn/Nausea Aripiprazole (Aripiprazole 5 Mg Tablet) 5 mg PO DAILY [facility] Last Admin: 06/29/23 08:13 Dose: 5 mg Ascorbic Acid (Ascorbic Acid 500 Mg Tablet) 500 mg PO BID [facility] Last Admin: 06/29/23 08:13 Dose: 500 mg Bisacodyl (Bisacodyl 10 Mg Supp.Rect) 10 mg [place] DAILY PRN PRN Reason: Constipation Calcium Carbonate (Calcium Carbonate 750 Mg Tab.Chew) 750 mg PO TID PRN PRN Reason: GI Upset Docusate Sodium (Docusate Sodium 100 Mg Capsule) 100 mg PO BID [facility] Last Admin: 06/29/23 08:13 Dose: 100 mg Hydroxyzine HCl (Hydroxyzine Hcl 25 Mg Tablet) 25 mg PO Q6H PRN PRN Reason: Anxiety Last Admin: 06/27/23 05:15 Dose: 25 mg Hydroxyzine HCl (Hydroxyzine Hcl 25 Mg Tablet) 25 mg PO QID [facility] Last Admin: 06/29/23 08:13 Dose: Not Given Lorazepam (Lorazepam 0.5 Mg Tablet) 0.5 mg PO BID PRN PRN Reason: Anxiety Magnesium Hydroxide (Milk Of Magnesia 30 Ml Oral.Susp) 30 ml PO DAILY PRN PRN Reason: Constipation Melatonin (Melatonin 3 Mg Tablet) 3 mg PO BEDTIME [facility] Last Admin: 06/28/23 20:26 Dose: 3 mg Multivitamins/Vitamin C (Multivitamin Tablet) 1 tab PO DAILY [facility] Last Admin: 06/29/23 08:12 Dose: 1 tab Pt Own (Tocilizumab [Actemra] 162 Mg/0.9 Ml Syringe) 162 mg SUBCUT Tu@0900 [facility] Non-Formulary Medication (Estradiol) 1 packet TRANSDERMA BEDTIME [facility] Last Admin: 06/28/23 22:19 Dose: 1 packet Pt Own (Unithroid 88 (Mcg 88 Mcg)) 88 mcg PO DAILY@0600 [facility] Last Admin: 06/29/23 05:33 Dose: 88 mcg Pt Own (Lacto19- Bifido-L.Lactis-P. Acid [Jarro-Dophilus Eps] 25 Billion C 2 cap PO DAILY [facility] Last Admin: 06/29/23 08:12 Dose: Not Given Polyethylene Glycol (Polyethylene Glycol 3350 17 Gm Powd.Pack) 17 gm PO DAILY [facility] Last Admin: 06/29/23 08:11 Dose: 17 gm Prednisone (Prednisone 1 Mg Tablet) 4 mg PO DAILY@0200 [facility] Last Admin: 06/29/23 01:27 Dose: 4 mg Prednisone (Prednisone 10 Mg Tablet) 10 mg PO DAILY@0200 [facility] Last Admin: 06/29/23 01:26 Dose: 10 mg Senna (Sennosides 8.6 Mg Tablet) 8.6 mg PO DAILY [facility] Last Admin: 06/29/23 08:15 Dose: Not Given Simethicone (Simethicone 80 Mg Tab.Chew) 80 mg PO TID PRN PRN Reason: Gas Trazodone HCl (Trazodone Hcl 50 Mg Tablet) 50 mg PO BEDTIME MRX1 PRN PRN Reason: Insomnia Trazodone HCl (Trazodone Hcl 100 Mg Tablet) 100 mg PO BEDTIME [facility] Last Admin: 06/28/23 20:26 Dose: 100 mg Venlafaxine HCl (Venlafaxine Hcl Er 75 Mg Cap.Er.24h) 75 mg PO DAILY [facility] Last Admin: 06/29/23 08:13 Dose: 75 mg Venlafaxine HCl (Venlafaxine Hcl Er 150 Mg Cap.Er.24h) 150 mg PO DAILY [facility] Last Admin: 06/29/23 08:13 Dose: 150 mg Allergies Allergies Allergy/AdvReac Type Severity Reaction Status Date / Time penicillin V Allergy Intermediate Rash Verified 04/19/23 10:42 Assessment & Plan Assessment & Plan (1) Major depressive disorder: Status: Acute Code(s): F32.9 - Major depressive disorder, single episode, unspecified Plan the patient is a 78-year-old female, , with a past history of major depressive disorder who try to kill herself by stabbing herself in the neck and her Anthony the require several surgical repair a shins. 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 She was medically treated, with several surgeries and referred to this facility for psychiatric stabilization. Plan 1. Gather collateral information. 2. Continue with antidepressants. 3. Continue with medical follow-up. 4. 50 minute checks. 5. Reassessment results. Reason for continued inpatient stay Substantial Risk for: inability to function, rapid decompensation and med/psych decompensation Time Spent With Patient Time: Total time managing care of this patient today ___20_ minutes.
[2023-06-29 18:00] VITALS: BP 135/68; PULSE 66; RESP 17; TEMP 36.2; O2SAT 95
[2023-06-29] MEDS: traZODone HCL 100 MG TABLET PO (19:57)
[2023-06-29] MEDS: Melatonin 3 MG TABLET PO (19:57)
[2023-06-30] MEDS: predniSONE 10 MG TABLET PO (02:13)
[2023-06-30] MEDS: predniSONE 1 MG TABLET 4 MG PO (02:13)
[2023-06-30] MEDS: Acetaminophen 325 MG TABLET 650 MG PO ×3 (02:17→18:08)
[2023-06-30 08:00] VITALS: BP 130/71; PULSE 80; RESP 18; TEMP 36.8; O2SAT 96
[2023-06-30] MEDS: Multivitamin TABLET 1 TAB PO (08:15)
[2023-06-30] MEDS: ARIPiprazole 5 MG TABLET PO (08:15)
[2023-06-30] MEDS: Docusate Sodium 100 MG CAPSULE PO ×2 (08:15→20:30)
[2023-06-30] MEDS: Venlafaxine HCl ER 75 MG CAP.ER.24H PO (08:15)
[2023-06-30] MEDS: Venlafaxine HCl ER 150 MG CAP.ER.24H PO (08:15)
[2023-06-30] MEDS: Ascorbic Acid 500 MG TABLET PO ×2 (08:16→20:30)
[2023-06-30] MEDS: polyethylene glycoL 3350 17 GM POWD.PACK PO (08:24)
--- NOTE | 2023-06-30 09:59 | HO.PSYCHPN ---
Subjective Subjective Date of Service: 06/30/23 Reason For Visit: Major depressive order, recurrent, severe Subjective Notes: Conditional Voluntary Healthcare Proxy: No Guardianship: No Medical Problems Affecting Mental Status: No Interim History: met with patient. Discussed with Nursing. Overall no management issues and looking forward to discharge. Reports that she is feeling a little less depressed. Mood is brighter. Getting some enjoyment out of things. Appetite slowly improving. Feels that Effexor and Abilify dosing that was just increased before admission, are perhaps taking affect. Sleep is okay, but environmentally it is challenging as there are some loud people on the unit. Looking forward to getting home and spending time with her . No SI. No agitation or psychosis. No medication concerns. Attending groups. Medication Compliance: Yes Side effects from medications: No Attending Groups: Yes Review of Systems Acute medical concerns: No Review of Systems Review of Systems Yes all other systems are reviewed and are negative Mental Status Exam Mental Status Exam Narrative: Pleasant. Organized. Fairly presented. Less depressed. Reactive affect. No SI. No HI. No agitation. No psychosis. Insight and judgment fair Diagnostics Vital Signs (24Hr): Vital Signs - 24 hr 06/29/23 18:00 Temperature 97.1 F Pulse Rate 66 Respiratory Rate 17 Blood Pressure 135/68 Pulse Oximetry 95 Oxygen Delivery Method Room Air BMI result Body Mass Index 26.1 Medications Medications Current Medications Acetaminophen (Acetaminophen 325 Mg Tablet) 650 mg PO Q6H PRN PRN Reason: Headache/Pain Mild Scale (1-3) Last Admin: 06/30/23 09:56 Dose: 650 mg Al Hydroxide/Mg Hydroxide (Magnesium Hydrox/Alum Hydrox 30 Ml Oral.Susp) 30 ml PO Q6H PRN PRN Reason: Heartburn/Nausea Aripiprazole (Aripiprazole 5 Mg Tablet) 5 mg PO DAILY [facility] Last Admin: 06/30/23 08:15 Dose: 5 mg Ascorbic Acid (Ascorbic Acid 500 Mg Tablet) 500 mg PO BID [facility] Last Admin: 06/30/23 08:16 Dose: 500 mg Bisacodyl (Bisacodyl 10 Mg Supp.Rect) 10 mg [place] DAILY PRN PRN Reason: Constipation Calcium Carbonate (Calcium Carbonate 750 Mg Tab.Chew) 750 mg PO TID PRN PRN Reason: GI Upset Docusate Sodium (Docusate Sodium 100 Mg Capsule) 100 mg PO BID [facility] Last Admin: 06/30/23 08:15 Dose: 100 mg Hydroxyzine HCl (Hydroxyzine Hcl 25 Mg Tablet) 25 mg PO Q6H PRN PRN Reason: Anxiety Last Admin: 06/27/23 05:15 Dose: 25 mg Hydroxyzine HCl (Hydroxyzine Hcl 25 Mg Tablet) 25 mg PO QID [facility] Last Admin: 06/30/23 08:23 Dose: Not Given Lorazepam (Lorazepam 0.5 Mg Tablet) 0.5 mg PO BID PRN PRN Reason: Anxiety Magnesium Hydroxide (Milk Of Magnesia 30 Ml Oral.Susp) 30 ml PO DAILY PRN PRN Reason: Constipation Melatonin (Melatonin 3 Mg Tablet) 3 mg PO BEDTIME [facility] Last Admin: 06/29/23 19:57 Dose: 3 mg Multivitamins/Vitamin C (Multivitamin Tablet) 1 tab PO DAILY [facility] Last Admin: 06/30/23 08:15 Dose: 1 tab Pt Own (Tocilizumab [Actemra] 162 Mg/0.9 Ml Syringe) 162 mg SUBCUT Tu@0900 [facility] Non-Formulary Medication (Estradiol) 1 packet TRANSDERMA BEDTIME [facility] Last Admin: 06/29/23 19:57 Dose: 1 packet Pt Own (Unithroid 88 (Mcg 88 Mcg)) 88 mcg PO DAILY@0600 [facility] Last Admin: 06/30/23 06:22 Dose: 88 mcg Pt Own (Lacto19- Bifido-L.Lactis-P. Acid [Jarro-Dophilus Eps] 25 Billion C 2 cap PO DAILY [facility] Last Admin: 06/30/23 08:26 Dose: Not Given Pt Own (Thyroid La ( (T3) 10 Mg)) 10 mg PO DAILY@0600 [facility] Last Admin: 06/30/23 06:37 Dose: 10 mg Polyethylene Glycol (Polyethylene Glycol 3350 17 Gm Powd.Pack) 17 gm PO DAILY [facility] Last Admin: 06/30/23 08:24 Dose: 17 gm Prednisone (Prednisone 1 Mg Tablet) 4 mg PO DAILY@0200 [facility] Last Admin: 06/30/23 02:13 Dose: 4 mg Prednisone (Prednisone 10 Mg Tablet) 10 mg PO DAILY@0200 [facility] Last Admin: 06/30/23 02:13 Dose: 10 mg Senna (Sennosides 8.6 Mg Tablet) 8.6 mg PO DAILY [facility] Last Admin: 06/30/23 08:24 Dose: Not Given Simethicone (Simethicone 80 Mg Tab.Chew) 80 mg PO TID PRN PRN Reason: Gas Trazodone HCl (Trazodone Hcl 50 Mg Tablet) 50 mg PO BEDTIME MRX1 PRN PRN Reason: Insomnia Trazodone HCl (Trazodone Hcl 100 Mg Tablet) 100 mg PO BEDTIME [facility] Last Admin: 06/29/23 19:57 Dose: 100 mg Venlafaxine HCl (Venlafaxine Hcl Er 75 Mg Cap.Er.24h) 75 mg PO DAILY [facility] Last Admin: 06/30/23 08:15 Dose: 75 mg Venlafaxine HCl (Venlafaxine Hcl Er 150 Mg Cap.Er.24h) 150 mg PO DAILY [facility] Last Admin: 06/30/23 08:15 Dose: 150 mg Allergies Allergies Allergy/AdvReac Type Severity Reaction Status Date / Time penicillin V Allergy Intermediate Rash Verified 04/19/23 10:42 Assessment & Plan Assessment & Plan (1) Major depressive disorder: Status: Acute Code(s): F32.9 - Major depressive disorder, single episode, unspecified Plan the patient is a 78-year-old female, , with a past history of major depressive disorder who try to kill herself by stabbing herself in the neck and her Anthony the require several surgical repair a shins. She had a history of depression with neurovegetative symptoms for the last 2 months that worsened to the point that she was suicidal. She was medically treated, with several surgeries and referred to this facility for psychiatric stabilization. Plan 1. Gather collateral information. 2. Continue with antidepressants. 3. Continue with medical follow-up. 4. 50 minute checks. 5. Reassessment results. 06/30/2023: No changes to current plan as slowly improving. Reason for continued inpatient stay Substantial Risk for: rapid decompensation Time Spent With Patient Time: Total time managing care of this patient today ____ minutes.
[2023-06-30 18:00] VITALS: BP 149/67; PULSE 72; RESP 18; TEMP 36.3; O2SAT 96
[2023-06-30] MEDS: traZODone HCL 100 MG TABLET PO (20:31)
[2023-06-30] MEDS: Melatonin 3 MG TABLET PO (20:31)
[2023-07-01] MEDS: predniSONE 1 MG TABLET 4 MG PO (02:26)
[2023-07-01] MEDS: predniSONE 10 MG TABLET PO (02:26)
[2023-07-01] MEDS: Acetaminophen 325 MG TABLET 650 MG PO ×2 (02:31→13:50)
[2023-07-01 08:00] VITALS: BP 117/59; PULSE 76; RESP 18; TEMP 36.6; O2SAT 95
[2023-07-01] MEDS: ARIPiprazole 5 MG TABLET PO (08:11)
[2023-07-01] MEDS: Multivitamin TABLET 1 TAB PO (08:11)
[2023-07-01] MEDS: Venlafaxine HCl ER 75 MG CAP.ER.24H PO (08:11)
[2023-07-01] MEDS: Docusate Sodium 100 MG CAPSULE PO ×2 (08:11→20:18)
[2023-07-01] MEDS: Venlafaxine HCl ER 150 MG CAP.ER.24H PO (08:11)
[2023-07-01] MEDS: polyethylene glycoL 3350 17 GM POWD.PACK PO (08:11)
[2023-07-01] MEDS: Ascorbic Acid 500 MG TABLET PO ×2 (08:11→20:18)
--- NOTE | 2023-07-01 14:29 | HO.PSYCHPN ---
Subjective Subjective Date of Service: 07/01/23 Reason For Visit: Major depressive order, recurrent, severe Interim History: Met with patient. Discussed with Nursing. Continues to look forward to discharge- Sunday rather than Sunday as dressing/arm follow up on Sunday. Still a little less depressed. Mood is brighter. Getting some enjoyment out of things. Appetite slowly improving. Feels that Effexor and Abilify dosing that was just increased before admission, are perhaps taking affect. Sleep is okay, but environmentally it is challenging as there are some loud people on the unit. Looking forward to getting home and spending time with her . No SI. No agitation or psychosis. No medication concerns. Attending groups. Medication Compliance: Yes Side effects from medications: No Attending Groups: Yes Review of Systems Acute medical concerns: No Review of Systems Review of Systems Yes all other systems are reviewed and are negative Mental Status Exam Mental Status Exam Narrative: Pleasant. Organized. Fairly presented. Less depressed. Reactive affect. No SI. No HI. No agitation. No psychosis. Insight and judgment fair Diagnostics Vital Signs (24Hr): Vital Signs - 24 hr 06/30/23 18:00 07/01/23 08:00 Temperature 97.4 F 97.9 F Pulse Rate 72 76 Respiratory Rate 18 18 Blood Pressure 149/67 H 117/59 L Pulse Oximetry 96 95 Oxygen Delivery Method Room Air Room Air BMI result Body Mass Index 26.1 Medications Medications Current Medications Acetaminophen (Acetaminophen 325 Mg Tablet) 650 mg PO Q6H PRN PRN Reason: Headache/Pain Mild Scale (1-3) Last Admin: 07/01/23 13:50 Dose: 650 mg Al Hydroxide/Mg Hydroxide (Magnesium Hydrox/Alum Hydrox 30 Ml Oral.Susp) 30 ml PO Q6H PRN PRN Reason: Heartburn/Nausea Aripiprazole (Aripiprazole 5 Mg Tablet) 5 mg PO DAILY [facility] Last Admin: 07/01/23 08:11 Dose: 5 mg Ascorbic Acid (Ascorbic Acid 500 Mg Tablet) 500 mg PO BID [facility] Last Admin: 07/01/23 08:11 Dose: 500 mg Bisacodyl (Bisacodyl 10 Mg Supp.Rect) 10 mg [place] DAILY PRN PRN Reason: Constipation Calcium Carbonate (Calcium Carbonate 750 Mg Tab.Chew) 750 mg PO TID PRN PRN Reason: GI Upset Docusate Sodium (Docusate Sodium 100 Mg Capsule) 100 mg PO BID [facility] Last Admin: 07/01/23 08:11 Dose: 100 mg Hydroxyzine HCl (Hydroxyzine Hcl 25 Mg Tablet) 25 mg PO Q6H PRN PRN Reason: Anxiety Last Admin: 06/27/23 05:15 Dose: 25 mg Hydroxyzine HCl (Hydroxyzine Hcl 25 Mg Tablet) 25 mg PO QID [facility] Last Admin: 07/01/23 12:48 Dose: Not Given Lorazepam (Lorazepam 0.5 Mg Tablet) 0.5 mg PO BID PRN PRN Reason: Anxiety Magnesium Hydroxide (Milk Of Magnesia 30 Ml Oral.Susp) 30 ml PO DAILY PRN PRN Reason: Constipation Melatonin (Melatonin 3 Mg Tablet) 3 mg PO BEDTIME [facility] Last Admin: 06/30/23 20:31 Dose: 3 mg Multivitamins/Vitamin C (Multivitamin Tablet) 1 tab PO DAILY [facility] Last Admin: 07/01/23 08:11 Dose: 1 tab Pt Own (Tocilizumab [Actemra] 162 Mg/0.9 Ml Syringe) 162 mg SUBCUT Tu@0900 [facility] Non-Formulary Medication (Estradiol) 1 packet TRANSDERMA BEDTIME [facility] Last Admin: 06/30/23 20:32 Dose: 1 packet Pt Own (Unithroid 88 (Mcg 88 Mcg)) 88 mcg PO DAILY@0600 [facility] Last Admin: 07/01/23 05:53 Dose: 88 mcg Pt Own (Lacto19- Bifido-L.Lactis-P. Acid [Jarro-Dophilus Eps] 25 Billion C 2 cap PO DAILY [facility] Last Admin: 07/01/23 08:43 Dose: Not Given Pt Own (Thyroid La ( (T3) 10 Mg)) 10 mg PO DAILY@0600 [facility] Last Admin: 07/01/23 05:53 Dose: 10 mg Polyethylene Glycol (Polyethylene Glycol 3350 17 Gm Powd.Pack) 17 gm PO DAILY [facility] Last Admin: 07/01/23 08:11 Dose: 17 gm Prednisone (Prednisone 1 Mg Tablet) 4 mg PO DAILY@0200 [facility] Last Admin: 07/01/23 02:26 Dose: 4 mg Prednisone (Prednisone 10 Mg Tablet) 10 mg PO DAILY@0200 [facility] Last Admin: 07/01/23 02:26 Dose: 10 mg Senna (Sennosides 8.6 Mg Tablet) 8.6 mg PO DAILY [facility] Last Admin: 07/01/23 08:45 Dose: Not Given Simethicone (Simethicone 80 Mg Tab.Chew) 80 mg PO TID PRN PRN Reason: Gas Trazodone HCl (Trazodone Hcl 50 Mg Tablet) 50 mg PO BEDTIME MRX1 PRN PRN Reason: Insomnia Trazodone HCl (Trazodone Hcl 100 Mg Tablet) 100 mg PO BEDTIME [facility] Last Admin: 06/30/23 20:31 Dose: 100 mg Venlafaxine HCl (Venlafaxine Hcl Er 75 Mg Cap.Er.24h) 75 mg PO DAILY [facility] Last Admin: 07/01/23 08:11 Dose: 75 mg Venlafaxine HCl (Venlafaxine Hcl Er 150 Mg Cap.Er.24h) 150 mg PO DAILY [facility] Last Admin: 07/01/23 08:11 Dose: 150 mg Allergies Allergies Allergy/AdvReac Type Severity Reaction Status Date / Time penicillin V Allergy Intermediate Rash Verified 04/19/23 10:42 Assessment & Plan Assessment & Plan (1) Major depressive disorder: Status: Acute Code(s): F32.9 - Major depressive disorder, single episode, unspecified Plan the patient is a 78-year-old female, , with a past history of major depressive disorder who try to kill herself by stabbing herself in the neck and her Anthony the require several surgical repair a shins. She had a history of depression with neurovegetative symptoms for the last 2 months that worsened to the point that she was suicidal. She was medically treated, with several surgeries and referred to this facility for psychiatric stabilization. Plan 1. Gather collateral information. 2. Continue with antidepressants. 3. Continue with medical follow-up. 4. 50 minute checks. 5. Reassessment results. 06/30/2023: No changes to current plan as slowly improving. 07/01/23: Looking forward to discharge- Sunday rather than Sunday as dressing/arm follow up on Sunday. Reason for continued inpatient stay Substantial Risk for: rapid decompensation Time Spent With Patient Time: Total time managing care of this patient today ____ minutes.
[2023-07-01 18:00] VITALS: BP 124/64; PULSE 67; RESP 16; TEMP 36.2; O2SAT 93
[2023-07-01] MEDS: Melatonin 3 MG TABLET PO (20:20)
[2023-07-01] MEDS: traZODone HCL 100 MG TABLET PO (20:20)
[2023-07-02] MEDS: predniSONE 10 MG TABLET PO (02:11)
[2023-07-02] MEDS: predniSONE 1 MG TABLET 4 MG PO (02:11)
[2023-07-02] MEDS: Acetaminophen 325 MG TABLET 650 MG PO (02:12)
[2023-07-02 07:45] VITALS: BP 130/65; PULSE 71; RESP 15; TEMP 36.4; O2SAT 94
[2023-07-02] MEDS: polyethylene glycoL 3350 17 GM POWD.PACK PO (07:54)
[2023-07-02] MEDS: Venlafaxine HCl ER 75 MG CAP.ER.24H PO (07:56)
[2023-07-02] MEDS: Docusate Sodium 100 MG CAPSULE PO (07:56)
[2023-07-02] MEDS: Venlafaxine HCl ER 150 MG CAP.ER.24H PO (07:56)
[2023-07-02] MEDS: Multivitamin TABLET 1 TAB PO (07:56)
[2023-07-02] MEDS: Ascorbic Acid 500 MG TABLET PO (07:56)
[2023-07-02] MEDS: ARIPiprazole 5 MG TABLET PO (07:57)
--- NOTE | 2023-07-02 08:01 | PM.PSYDC ---
DS: Providers Provider Date of Service: 07/02/23 Date of admission: 06/26/23 13:35 Date of discharge: 06/25/23 Primary care physician: Kay Singletary MD Consults: 06/26/23 17:15 Consult to Hospitalist Routine Comment: Consulting Provider: Hospitalist Reason For Exam: Direct admission DS: Diagnosis Discharge Diagnosis (1) Major depressive disorder: Status: Acute DS: Medications Discharge Medications Home Medications: Home Medications Medication Instructions Recorded Confirmed acetaminophen 325 mg capsule 650 mg PO Q4H PRN Pain 06/26/23 06/26/23 calcium carbonate 250 mg chewable 500 mg PO TID 06/26/23 06/26/23 tablet enoxaparin 30 mg/0.3 mL 30 mg subcut BID 06/26/23 06/26/23 subcutaneous solution vitamin A 10,000 unit tablet 20,000 unit PO DAILY 06/26/23 06/26/23 vitamin B complex 1 tab PO DAILY 06/26/23 06/26/23 Previous Rx's Medication Instructions Recorded Betaine With Pepsin 650/162 Mg 1 cap PO TIDWM #90 caps 06/29/23 Lacto 2 cap PO DAILY 30 days #60 caps 06/29/23 19-B.breve,long-L.lactis-P.acidi 25 billion cell capsule,del rel (Jarro-Dophilus EPS) Saccharomyces boulardii 250 mg 250 mg PO BID #60 caps 06/29/23 capsule Time Release T3 10 Mg 10 mg PO DAILY 30 days #30 tabs 06/29/23 aripiprazole 5 mg tablet (Abilify) 5 mg PO DAILY 30 days #30 tabs 06/29/23 ascorbic acid (vitamin C) 250 mg 500 mg (2 x 250 mg) PO BID #60 tabs 06/29/23 tablet bisacodyl 10 mg rectal suppository 10 mg IA DAILY PRN Constipation 06/29/23 #12 ea calcium carbonate 300 mg (750 mg) 2.5 tab PO TID PRN Gi Upset #90 06/29/23 chewable tablet (Antacid Extra tabs Strength (calcium carb)) docusate sodium 100 mg capsule 100 mg PO BID #60 caps 06/29/23 estradiol 0.25 mg/0.25 gram (0.1 1 packet transdermal BEDTIME #30 ea 06/29/23 %) transdermal gel packet hydroxyzine pamoate 25 mg capsule 25 mg PO QID #120 caps 06/29/23 levothyroxine 88 mcg tablet 88 mcg PO DAILY 30 days #30 tabs 06/29/23 (Unithroid) lorazepam 0.5 mg tablet 0.5 mg PO BID 30 days #60 tabs 06/29/23 melatonin 3 mg tablet 3 mg PO BEDTIME #30 tabs 06/29/23 polyethylene glycol 3350 17 gram 17 g PO DAILY #30 ea 06/29/23 oral powder packet (Miralax) prednisone 1 mg tablet 4 mg (4 x 1 mg) PO DAILY 30 days 06/29/23 #120 tabs prednisone 5 mg tablet 10 mg (2 x 5 mg) PO DAILY 30 days 06/29/23 #60 tabs sennosides 8.6 mg tablet (senna) 8.6 mg PO DAILY #30 tabs 06/29/23 simethicone 80 mg chewable tablet 80 mg PO TID #90 tabs 06/29/23 tocilizumab 162 mg/0.9 mL 162 mg (0.9 mL) subcut TU #0.9 mL 06/29/23 subcutaneous syringe (Actemra) trazodone 50 mg tablet 100 mg (2 x 50 mg) PO BEDTIME 30 06/29/23 days #60 tabs venlafaxine 150 mg 150 mg PO DAILY 30 days #30 caps 06/29/23 capsule,extended release 24 hr venlafaxine 37.5 mg 75 mg (2 x 37.5 mg) PO DAILY 30 06/29/23 capsule,extended release 24 hr days #60 caps Mental Status Exam Mental Status Exam Patient Appearance: Well Grooomed and Appropriate Patient Orientation: Person, Place and Situation Level of Consciousness: Awake and Appropriate Patient Behavior: Appropriate and Passive Mood Description: Calm Affect Description: Calm and Constricted Patient Cognition Impaired: No Ability to Follow Directions: Good Speech Pattern: Clear Hallucinations: None Delusions: Not Present Thought Process: Distracted and Evasive Thought Content: positive for Intact and positive for Circumstantial Judgement: Fair DS: Summary Hospital Course Hospital Course: the patient is a 78-year-old female, , with good social support referred from [facility] after she tried a suicidal attempt by stabbing herself on the neck and wrist there required several surgical procedures. The patient carries a diagnosis of major depressive disorder and she had a major episode in 2002, she had been on Effexor but in the last 2 months her depressive symptoms worsen with depressed mood, anhedonia, lack of energy feelings of hopelessness on active suicidal ideation. She was treated medically at [facility], assessed by the crisis team and transferring to this facility for psychiatric stabilization. Please see the HPI of the admission note for further details. On intake, the patient was remorseful of the suicidal attempt, she was alert, awake, future oriented unable to contract for safety in the facility. At [facility], she was increased on her Effexor up to 225 mg p.o. daily and added Abilify 5 mg p.o. daily as adjunctive therapy with for improvement. We continue with the same treatment, we did not do any major changes. The patient was able to participate in groups, she was future oriented and she signed a 3 day notice. We had a family meeting with her who reported that she has a good social support in the community, since there were no safety concerns discharge planning was discussed. The patient has several appointments and aftercare for her medical and surgical treatment. Time spent discussing smoking cessation with patient: 3 to 10 minutes Status at Discharge Cognitive/behavioral status at discharge: Intact baseline Functional status at discharge: independent ambulation Overall status at discharge: patient is back to baseline Time Spent with Patient Time attestation: Total time managing care of this patient today __30__ minutes. 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 Referrals: Kay Singletary MD [Primary Care Provider] - 1 Week Discharge Medications: New calcium carbonate [Antacid Ext Str (calcium carb)] 300 mg (750 mg) Tablet,Chewable 2.5 tab PO TID PRN (Reason: Gi Upset) Qty: 90 0RF Continued sennosides [senna] 8.6 mg Tablet 8.6 mg PO DAILY Qty: 30 0RF venlafaxine 37.5 mg Capsule,Extended Release 24hr 75 mg PO DAILY 30 Days Qty: 60 0RF Rx Instructions: total dose 225mg trazodone 50 mg Tablet 100 mg PO BEDTIME 30 Days Qty: 60 0RF polyethylene glycol 3350 [Miralax] 17 gram Powder In Packet 17 g PO DAILY Qty: 30 0RF prednisone 5 mg Tablet 10 mg PO DAILY 30 Days Qty: 60 0RF melatonin 3 mg Tablet 3 mg PO BEDTIME Qty: 30 0RF levothyroxine [Unithroid] 88 mcg Tablet 88 mcg PO DAILY 30 Days Qty: 30 0RF lorazepam 0.5 mg Tablet 0.5 mg PO BID 30 Days Qty: 60 0RF prednisone 1 mg Tablet 4 mg PO DAILY 30 Days Qty: 120 0RF ascorbic acid (vitamin C) 250 mg Tablet 500 mg PO BID Qty: 60 0RF bisacodyl 10 mg Suppository 10 mg IA DAILY PRN (Reason: Constipation) Qty: 12 0RF docusate sodium 100 mg Capsule 100 mg PO BID Qty: 60 0RF simethicone 80 mg Tablet,Chewable 80 mg PO TID Qty: 90 0RF hydroxyzine pamoate 25 mg Capsule 25 mg PO QID Qty: 120 0RF aripiprazole [Abilify] 5 mg Tablet 5 mg PO DAILY 30 Days Qty: 30 0RF Saccharomyces boulardii 250 mg Capsule 250 mg PO BID Qty: 60 0RF acetaminophen 325 mg Capsule 650 mg PO Q4H PRN (Reason: Pain) Qty: 60 0RF estradiol 0.25 mg/0.25 gram (0.1 %) Gel In Packet 1 packet TRANSDERMAL BEDTIME Qty: 30 0RF Actemra 162 mg/0.9 mL Syringe 162 mg SUBCUT TU Qty: 0.9 4RF Jarro-Dophilus EPS 25 billion cell Capsule,Delayed Release(Dr/Ec) 2 cap PO DAILY 30 Days Qty: 60 0RF Time Release T3 10 Mg 10 mg PO DAILY 30 Days Qty: 30 0RF venlafaxine 150 mg Capsule,Extended Release 24hr 150 mg PO DAILY 30 Days Qty: 30 0RF Rx Instructions: total dose 225mg vitamin B complex Tablet 1 tab PO DAILY Qty: 30 0RF Changed Betaine With Pepsin 650/162 Mg capsule 1 cap PO TIDWM Qty: 90 0RF Discontinued calcium carbonate 250 mg Tablet,Chewable 500 mg PO TID enoxaparin 30 mg/0.3 mL Solution 30 mg SUBCUT BID Rx Instructions: every 12 hours vitamin A 10,000 unit Tablet 20,000 unit PO DAILY Discharge Orders: Discharge Order (Routine); Ordered 07/02/23 Ordered By: Royce Benson Diet: Advance to usual diet Activity on Discharge: As tolerated Stand Alone Forms: Patient Portal Discharge page Care Plan Goals: care plan goals achieved in this admission, no evidence of safety concerns Health Concerns: continue treatment with outpatient providers. The patient has appointments with the surgical team of [facility] for continuation of care. Continue with treatment with primary care physician. Plan of Treatment: Continue psychiatric treatment as an outpatient. Assessment: The patient is an elderly female with a past history of major depressive disorder was transfer from another facility after she is seriously try to kill herself by stabbing herself in the wrist and in the neck that required several surgical treatments. At the moment she was brought, her depression was much better controlled, she was able to contract for safety and she is in a 3 day notice. We contact her who was in agreement on the plan and a good safe discharge plan was arranged.
== END 2023-07-02 11:27 | disposition home or self-care (01) | DRG 885 ==
PROVIDERS: Admitting Provider Psychiatry & Neurology Psychiatry; PCP Internal Medicine; Visit Provider Psychiatry & Neurology Psychiatry
DX: F33.2 Major depressive disorder, recurrent severe without psychotic features (principal); E03.9 Hypothyroidism, unspecified; M31.5 Giant cell arteritis with polymyalgia rheumatica; Z91.51 Personal history of suicidal behavior; Z87.891 Personal history of nicotine dependence; Z79.52 Long term (current) use of systemic steroids; Z79.890 Hormone replacement therapy; Z79.899 Other long term (current) drug therapy

== ENCOUNTER → 2023-06-26 13:35 | Outpatient (BNV) | payer MEDICARE, SELFPAY | PROVIDERS: Admitting Provider Psychiatry & Neurology Psychiatry; PCP Internal Medicine; Visit Provider Psychiatry & Neurology Psychiatry | DX: F33.2 Major depressive disorder, recurrent severe without psychotic features (principal) | CPT/HCPCS: 90792; 99231; 99239 ==

== ENCOUNTER → 2023-06-26 13:35 | Outpatient (BNV) | payer MEDICARE, SELFPAY | PROVIDERS: Admitting Provider Psychiatry & Neurology Psychiatry; PCP Internal Medicine; Visit Provider Physician Assistant | DX: S51.812D Laceration without foreign body of left forearm, subsequent encounter (principal); X83.8XXA Intentional self-harm by other specified means, initial encounter; M31.6 Other giant cell arteritis; E03.9 Hypothyroidism, unspecified | CPT/HCPCS: 99222 ==

== ENCOUNTER 2023-07-06 13:54 | Outpatient (REF) | payer MEDICARE, SELFPAY ==
[2023-07-06 15:30] LABS: Free T4 (Free Thyroxine) 1.24 ng/dL (0.71-1.85); Thyroid Stimulating Hormone 1.42 uIU/mL (0.32-4.0)
[2023-07-07 09:14] LABS: Triiodothyronine T3 Free 3.2 pg/mL (2.3-4.2)
== END 2023-07-06 13:55 | disposition home or self-care (01) ==
LOC: HO.LAB 13:54
PROVIDERS: Family Medicine; PCP Internal Medicine; Visit Provider Internal Medicine Rheumatology
DX: Z79.899 Other long term (current) drug therapy (principal)
CPT/HCPCS: 36415; 84439; 84443; 84481

== ENCOUNTER 2023-07-10 11:13 | Outpatient (AMB) | payer MEDICARE, SELFPAY ==
--- NOTE | 2023-07-10 11:16 | MHC.OFFVIS ---
Intake Vital Signs 07/10/23 11:24 Height 5 ft 6.5 in Weight 162 lb 7.691 oz BMI 25.8 BP 108/60 Blood Pressure Location Rt brachial Position Sitting Pulse 74 Pulse Source Pulse Oximeter Temp 97 F Temp Source Skin Pulse Oximetry (%) 95 Oxygen Delivery Method Room Air Intake Visit Reasons: Giant cell arteritis Intake Note: Patient presents today for follow up on [facility]. Recently admitted to hospital. MRI has not been done, patient would like to hold off at this time. Clinical Research Specialist Required: No Accompanied by: Self / Same As Patient Allergies penicillin V Allergy (Intermediate, Verified 07/10/23 11:17) Rash Medication List - Last Reconciled 07/10/23 by Suman Gresham MD acetaminophen 650 mg (2 x 325 mg) PO Q4H PRN aripiprazole (Abilify) 5 mg PO DAILY 30 days [Betaine With Pepsin 650/162 Mg 1 cap PO TIDWM] bisacodyl 10 mg [place] DAILY PRN docusate sodium 100 mg PO BID levothyroxine (Unithroid) 88 mcg PO DAILY 30 days melatonin 3 mg PO BEDTIME polyethylene glycol 3350 (Miralax) 17 grams PO DAILY prednisone 10 mg (2 x 5 mg) PO DAILY 30 days prednisone 3 mg (3 x 1 mg) PO DAILY 90 days Saccharomyces boulardii 250 mg PO BID simethicone 80 mg PO TID [Time Release T3 10 Mg 10 mg PO DAILY 30 days] tocilizumab (Actemra) 162 mg (0.9 mL) subcut QWEEK trazodone 50 mg PO BEDTIME venlafaxine ER (Effexor XR) 300 mg PO DAILY HPI HPI Comments History of Present Illness Details The patient returns today with her for evaluation of her giant cell arteritis. Presently she is on 14 mg daily prednisone and 162 mg subcutaneously Actemra every week. She does not seem to have any headache, jaw claudication or episodic visual disturbance. She thinks the eyes have been a bit blurry for the last year or so. She does not have any shoulder, hip or back pain presently. She was hospitalized in late May with a suicide attempt. She presented to [facility] with self-inflicted left neck and left wrist lacerations. These were surgically evaluated. She had surgical closure of the neck wounds but still has an open wound in the left wrist. The says that they are planning a skin graft once there is enough granulation tissue present. She has the wrist in an Robert bandage and splint today. When she was surgically stabilized she was transferred to the psych unit here at [place]. She says the depression is improving. The venlafaxine was just increased to 300 mg daily in the last few days. She remains on Abilify, trazodone, and vitamin-A. 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 Polymyalgia rheumatica Surgical History Hx of surgical biopsy H/O tubal ligation H/O cataract removal with insertion of prosthetic lens History of knee replacement procedure of right knee Family History Father Leukemia Mother Stroke Social History Household Members: Spouse Housing: House Do you presently have visiting nurse or other home services: No Alcohol intake: current Alcohol intake frequency: a few times a week Alcohol type: wine Patient Tobacco Use Status: Former Tobacco user Quit Date: 04/06/2023 Tobacco use type: Cigarette Years Smoked: 20 e-Cigarette/Vaping Use: Never Used Second Hand Smoke Exposure: No service: No Sexual orientation: Straight/Heterosexual Review of Systems Const Details: Energy level is a bit better than prior to her hospitalizations. Negative for appetite change, weight change, fever, chills, malaise Eyes Details: There is some decreased visual acuity notable over the last year. Negative for dry eyes,headaches and dizziness ENT Details: Negative for hearing change, tinnitus, oral ulcer, nose bleeds and oral dryness. Card Details: Negative chest pain, edema and syncope Resp Details: Negative for SOB, cough and wheezing GI Details: Negative indigestion/heartburn, nausea, abdominal pain, bowel changes, diarrhea, constipation and bloody stool. Neuro Details: Some numbness in the left hand. Negative for epilepsy, palsy, stroke, changes in speech and weakness Psych Details: anxiety, depression she says are improving. Her agrees. Endo Details: Negative for polyuria and polydypsia Alber/Lymph Details: Negative for excessive bruising or bleeding. Physical Exam Vital Signs: Last Vital Signs Temp 97 F 07/10/23 11:24 Pulse 74 07/10/23 11:24 BP 108/60 07/10/23 11:24 Pulse Ox 95 07/10/23 11:24 Oxygen Delivery Method Room Air 07/10/23 11:24 BMI result Body Mass Index 25.8 APPEARANCE: Patient in no acute distress EYES no redness, pupils equal and reactive to light, eyelids normal. Well-healed scar on the left preauricular region where she had the biopsy. No tenderness in the temporal artery. THROAT: Oral mucosa moist, no ulcerations NECK: No parotid or submandibular tenderness. There is an irregular scar around the left anterior neck region. This seems well healed without any tenderness.. EXTREMITIES: No edema, no calf tenderness, normal peripheral pulses. JOINT EXAM:?? Cervical Spine:.? Slight decrease in range of motion but without pain; no tenderness. Thoracic Spine:.? No scoliosis.? No tenderness on palpation. Lumbar Spine:.? Alignment normal.? Full range of motion without pain, no tenderness. Chest Wall:.? No tenderness, swelling, increased warmth or erythema. Hands:.? Normal pain-free range of motion without tenderness, swelling, increased warmth or erythema. Able to make a full fist and has a good toe puller strength. Wrists:.? Left: The wrist is in the splint and has an Robert wrap around it. I did not remove it. Right: Normal pain-free range of motion without tenderness, swelling, increased warmth or erythema. Elbows:. Normal pain-free range of motion without tenderness, swelling, increased warmth or erythema. Shoulders: Right: Slight discomfort with extremes of normal range of motion. No tenderness, weakness or adenopathy. Left:Full range of motion without pain. No tenderness, weakness, swelling, increased warmth or erythema. Hips:.? Full range of motion without pain. Hip bursa:.? No tenderness. Knees:.?? Normal pain-free range of motion with slight patellofemoral crepitus. No effusion, tenderness, swelling, increased warmth or erythema.? Ankles:.? Normal pain-free range of motion without tenderness, swelling, increased warmth or erythema. Tender points:? Mild tenderness to digital palpation at the right trapezius, both lateral epicondyles, right greater trochanter area. ? EYES no redness, pupils equal and reactive to light, eyelids normal EARS: External ear normal, canal clear and tympanic membrane normal. NOSE/SINUS: Airflow through both nares, no nasal discharge, no bleeding THROAT: Oral mucosa moist, no ulcerations NECK: No thyromegaly or masses, no adenopathy, trachea midline. HEART: Regulrar rhythm, S1-S2 heard, no murmurs, rubs or gallops. LUNG: Clear to percussion and auscultation ABD: Normal bowel sounds, no organomegaly, masses or tenderness. EXTREMITIES: No edema, no calf tenderness, normal peripheral pulses. NEURO: Oriented and alert x3. No focal weakness. Reflexes symmetric. Gait normal. SKIN: No inflammatory or neoplastic lesions. Normal color and turgor JOINT EXAM:.?? Cervical Spine:.? Full range of motion without pain; no tenderness. Thoracic Spine:.? No scoliosis.? No tenderness on palpation. Lumbar Spine:.? Alignment normal.? Full range of motion without pain, no tenderness. Chest Wall:.? No tenderness, swelling, increased warmth or erythema. Hands:.? Normal pain-free range of motion without tenderness, swelling, increased warmth or erythema. Able to make a full fist and has a good toe puller strength. Wrists:.? Normal pain-free range of motion without tenderness, swelling, increased warmth or erythema. Elbows:. Normal pain-free range of motion without tenderness, swelling, increased warmth or erythema. Shoulders:.?? Full range of motion without pain. No tenderness, weakness, swelling, increased warmth or erythema. Hips:.? Full range of motion without pain. Hip bursa:.? No tenderness. Knees:.?? Normal pain-free range of motion without tenderness, swelling, increased warmth or erythema.? There is no effusion or crepitation Ankles:.? Normal pain-free range of motion without tenderness, swelling, increased warmth or erythema. Feet:.? Normal pain-free range of motion without tenderness, swelling, increased warmth or erythema. Tender points:.? No tenderness to digital palpation at the occiput, trapezius, second rib, lateral epicondyle, knees, greater trochanter and gluteal area bilaterally. ? Results Reviewed Results Reviewed: Labs from [facility]: June 25: Creatinine 0.7, CRP less than 0.3, TSH 3.95, white count 4.7, hemoglobin 14.2 June 11: Sed rate less than 2 June 01: AST 40, ALT 13 Assessment & Plan Assessment & Plan (1) Depressive disorder: Comment: First diagnosis in 2002. Some help with antidepressants that were stopped for 7 years but restarted for return of symptoms. 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 TA bx negative. prednisone increased with improvement. Actemra added03/2023 Code(s): M31.6 - Other giant cell arteritis Plan She has giant cell arteritis that was preceded by a few years of PMR. She seems to have symptoms well controlled with current treatment. She now has a wrist woundthat may require skin grafting so certainly being on the prednisone may limit the wound healing and we should try to reduce that dose as much as we can. Previously when we got closer to 10 mg daily on the prednisone she had more headache although the acute phase reactants did not change. It is possible some of the headache symptoms and fatigue were related to her worsening depression at the time. We will continue with the Actemra since she seems to be tolerating it. I sent in a new prescription to her [facility] pharmacy. I also sent in prescriptions for the 1 mg prednisone and gave her instructions to take 3 mg with the one 10 mg tablet or 2 of the 5 mg tablets once daily. We will reduce the prednisone by 1 mg every 10 days so she should be on 10 mg daily by early August. We will arrange for follow-up with lab work before that visit with Rheumatology. Orders: Orders Comprehensive Met. Panel Today D84.821 - Immunodeficiency due to drugs, M31.6 - Other giant cell arteritis, T45.1X5A - Adverse effect of antineoplastic and immunosuppressive drugs, initial encounter, Z79.899 - Other vermin exterminator (current) drug therapy Complete Blood Count Auto Diff Today D84.821 - Immunodeficiency due to drugs, M31.6 - Other giant cell arteritis, T45.1X5A - Adverse effect of antineoplastic and immunosuppressive drugs, initial encounter, Z79.899 - Other care home (current) drug therapy Erythrocyte Sedimentation Rate Today D84.821 - Immunodeficiency due to drugs, M31.6 - Other giant cell arteritis, T45.1X5A - Adverse effect of antineoplastic and immunosuppressive drugs, initial encounter, Z79.899 - Other care home (current) drug therapy C Reactive Protein Today D84.821 - Immunodeficiency due to drugs, M31.6 - Other giant cell arteritis, T45.1X5A - Adverse effect of antineoplastic and immunosuppressive drugs, initial encounter, Z79.899 - Other care home (current) drug therapy Medications: Changed From prednisone 4 mg (4 x 1 mg) PO DAILY 30 days 120 tabs 0RF M31.6 - Other giant cell arteritis To prednisone take with 10 mg prednisone tabs for total dose of 13 mg 3 mg (3 x 1 mg) PO DAILY 90 days 270 tabs 1RF M31.6 - Other giant cell arteritis From tocilizumab (Actemra) 162 mg (0.9 mL) subcut TU 0.9 mL 4RF M31.6 - Other giant cell arteritis To tocilizumab (Actemra) 162 mg (0.9 mL) subcut QWEEK 3.6 mL 4RF M31.6 - Other giant cell arteritis From trazodone 100 mg (2 x 50 mg) PO BEDTIME 30 days 60 tabs 0RF To trazodone 50 mg PO BEDTIME From venlafaxine ER (Effexor XR) Total dose 225 mg/day 150 mg PO DAILY 30 caps 0RF To venlafaxine ER (Effexor XR) Total dose 225 mg/day 300 mg PO DAILY Coding Level of Care Code Est Pt Level 3 (98243) Diagnoses Depressive disorder F32.A FPC systemic steroid user Z79.52 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
[2023-07-10 11:24] VITALS: BP 108/60; PULSE 74; TEMP 36.1; O2SAT 95; BMI 25.8
== END 2023-07-10 12:13 | disposition home or self-care (01) ==
PROVIDERS: PCP Internal Medicine; Visit Provider Internal Medicine Rheumatology
DX: F32.A Depression, unspecified (principal); Z79.52 Long term (current) use of systemic steroids; D84.821 Immunodeficiency due to drugs; T45.1X5A Adverse effect of antineoplastic and immunosuppressive drugs, initial encounter; Z79.899 Other long term (current) drug therapy; M31.6 Other giant cell arteritis
CPT/HCPCS: 99213

== ENCOUNTER → 2023-07-10 11:13 | Outpatient (BNVA) | payer MEDICARE, SELFPAY | PROVIDERS: PCP Internal Medicine; Visit Provider Internal Medicine Rheumatology | DX: M31.6 Other giant cell arteritis (principal); F32.A Depression, unspecified; D84.821 Immunodeficiency due to drugs; T45.1X5A Adverse effect of antineoplastic and immunosuppressive drugs, initial encounter; Z79.899 Other long term (current) drug therapy; Z79.52 Long term (current) use of systemic steroids | CPT/HCPCS: 99212 ==

== ENCOUNTER 2023-08-03 13:33 | Outpatient (REF) | payer MEDICARE, SELFPAY ==
[2023-08-03 14:45] LABS: T4 Thyroxine 6.7 ug/dL (4.5-12.0); Thyroid Stimulating Hormone 1.43 uIU/mL (0.32-4.0)
[2023-08-04 08:08] LABS: Triiodothyronine T3 Free 3.1 pg/mL (2.3-4.2)
== END 2023-08-03 13:34 | disposition home or self-care (01) ==
LOC: HO.LABR 13:33
PROVIDERS: PCP Internal Medicine; Visit Provider Family Medicine
DX: Z79.899 Other long term (current) drug therapy (principal)
CPT/HCPCS: 36415; 84436; 84443; 84481

== ENCOUNTER 2023-08-20 12:19 | Outpatient (REF) | payer MEDICARE, SELFPAY ==
[2023-08-20 12:29] LABS: MANUAL DIFF FLAG NO
[2023-08-20 13:14] LABS: Basophils Absolute Auto 0.1 X10*3/uL (0.0-0.2); Basophils Percent Auto 0.5 % (0-2); Eosinophils Percent Auto 0.2 % (0-4); Hematocrit 48.4 % (37.0-47.0); Hemoglobin 16.2 g/dl (12.0-16.0); Imm Gran Abs Auto 0.07 X10*3/uL (0.00-0.03); Imm Gran Pct Auto 0.7 % (0.0-0.4); Lymphocytes Absolute Auto 1.1 X10*3/uL (1.2-4.9); Lymphocytes Percent Auto 10.8 % (20-40); Mean Corpuscular HGB Conc 33.5 g/dl (31.0-35.0); Mean Corpuscular Hemoglobin 33.1 pg (27.0-33.0); Mean Corpuscular Volume 98.8 fL (80.0-98.0); Mean Platelet Volume 9.9 fL (9.4-12.3); Monocytes Absolute Auto 0.4 X10*3/uL (0.1-1.2); Monocytes Percent Auto 3.9 % (2-11); Neutrophils Absolute Auto 8.2 x10*3/uL (2.0-8.3); Neutrophils Percent Auto 83.9 % (45-73); Platelet Count 271 X10*3/uL (160-400); Red Cell Distribution Width 11.8 % (11.0-16.0); White Blood Count 9.7 X10*3/uL (4.8-10.8)
[2023-08-20 13:54] LABS: Alanine Aminotransferase 22 U/L (0-31); Albumin Level 4.2 g/dL (3.5-5.0); Anion Gap 13 (12-20); Aspartate Amino Transferase 25 U/L (5-31); Bilirubin Total 0.5 mg/dL (0.0-1.0); Blood Urea Nitrogen 18 mg/dL (9-16); C Reactive Protein < 0.04 mg/dL (< or = 0.50); Calcium 9.5 mg/dL (8.4-10.2); Carbon Dioxide 27 mmol/L (22-29); Chloride 104 mmol/L (96-108); Estimated Glomerular Filt Rate > 60; Glucose Random 130 mg/dL (60-115); Potassium 4.1 mmol/L (3.3-5.1); Sodium 140 mmol/L (135-145); Total Protein 6.9 g/dL (6.5-8.0)
[2023-08-20 14:01] LABS: Alkaline Phosphatase 45 U/L (39-117)
[2023-08-20 14:05] LABS: Erythrocyte Sedimentation Rate 1 MM/HR (0-20)
== END 2023-08-20 12:20 | disposition home or self-care (01) ==
LOC: HO.LAB 12:19
PROVIDERS: PCP Internal Medicine; Visit Provider Internal Medicine Rheumatology
DX: M31.6 Other giant cell arteritis (principal); D84.821 Immunodeficiency due to drugs; T45.1X5A Adverse effect of antineoplastic and immunosuppressive drugs, initial encounter; Z79.899 Other long term (current) drug therapy
CPT/HCPCS: 36415; 80053; 85025; 85652; 86140

== ENCOUNTER 2023-08-22 14:25 | Outpatient (AMB) | payer MEDICARE, SELFPAY ==
--- NOTE | 2023-08-22 14:29 | MHC.OFFVIS ---
Intake Vital Signs 08/22/23 14:33 Height 5 ft 6 in Weight 168 lb 6.931 oz BMI 27.2 BP 132/64 Blood Pressure Location Rt brachial Position Sitting Pulse 67 Pulse Source Pulse Oximeter Temp 96.7 F L Temp Source Skin Pulse Oximetry (%) 95 Intake Visit Reasons: pmr Intake Note: Pt last seen by Dr Gresham on 07/10/23 presents today for follow up and test results. Pt states she was taking 13mg of prednisone, now is down to 10mg daily. Pt's reports recent surgery at [facility] skin graft Phone Technician Required: No Accompanied by: Spouse Allergies penicillin V Allergy (Intermediate, Verified 08/22/23 14:37) Rash Medication List - Last Reconciled 08/22/23 by Christ Jones MD acetaminophen 650 mg (2 x 325 mg) PO Q4H PRN aripiprazole (Abilify) 5 mg PO DAILY 30 days [Betaine With Pepsin 650/162 Mg 1 cap PO TIDWM] bisacodyl 10 mg CO DAILY PRN docusate sodium 100 mg PO BID levothyroxine (Unithroid) 88 mcg PO DAILY 30 days melatonin 3 mg PO BEDTIME polyethylene glycol 3350 (Miralax) 17 grams PO DAILY prednisone 10 mg (2 x 5 mg) PO DAILY 30 days prednisone 10 mg PO DAILY Saccharomyces boulardii 250 mg PO BID simethicone 80 mg PO TID [Time Release T3 10 Mg 10 mg PO DAILY 30 days] tocilizumab (Actemra ACTPen) 162 mg (0.9 mL) subcut QWEEK trazodone 50 mg PO BEDTIME venlafaxine ER (Effexor XR) 300 mg PO DAILY HPI HPI Comments History of Present Illness Details 78-year-old female with GCA and PMR returns for follow-up. She lowered her prednisone down to 10 mg daily just recently. She remains on Actemra weekly. She has not had any headaches, blurry vision or PMR symptoms. She had skin grafting by plastics for her left wrist recently. She states that her psychiatric medications are being adjusted. She would like to stay on prednisone 10 mg daily for 3 months before any further taper. Most recent history by Dr. Gresham 07/2023: The patient returns today with her for evaluation of her giant cell arteritis. Presently she is on 14 mg daily prednisone and 162 mg subcutaneously Actemra every week. She does not seem to have any headache, jaw claudication or episodic visual disturbance. She thinks the eyes have been a bit blurry for the last year or so. She does not have any shoulder, hip or back pain presently. She was hospitalized in late May with a suicide attempt. She presented to [facility] with self-inflicted left neck and left wrist lacerations. These were surgically evaluated. She had surgical closure of the neck wounds but still has an open wound in the left wrist. The says that they are planning a skin graft once there is enough granulation tissue present. She has the wrist in an Robert bandage and splint today. When she was surgically stabilized she was transferred to the psych unit here at [place]. She says the depression is improving. The venlafaxine was just increased to 300 mg daily in the last few days. She remains on Abilify, trazodone, and vitamin-A. [facility] Medical History Giant cell arteritis Hypothyroidism Depressive disorder Hypercholesterolemia residential systemic steroid user Polymyalgia rheumatica Surgical History Hx of skin graft Hx of surgical biopsy H/O tubal ligation H/O cataract removal with insertion of prosthetic lens History of knee replacement procedure of right knee Family History Father Leukemia Mother Stroke Social History Household Members: Spouse Housing: House Do you presently have visiting nurse or other home services: No Alcohol intake: current Alcohol intake frequency: a few times a week Alcohol type: wine Patient Tobacco Use Status: Former Tobacco user Quit Date: 04/06/2023 Tobacco use type: Cigarette Years Smoked: 20 e-Cigarette/Vaping Use: Never Used Second Hand Smoke Exposure: No service: No Sexual orientation: Straight/Heterosexual Review of Systems Const Denies fever(s) and Denies headache(s) ENT Denies headache(s) Neuro Denies headache(s) Physical Exam Vital Signs: Last Vital Signs Temp 96.7 F L 08/22/23 14:33 Pulse 67 08/22/23 14:33 BP 132/64 08/22/23 14:33 Pulse Ox 95 08/22/23 14:33 BMI result Body Mass Index 27.2 Const General: cooperative, healthy appearing and comfortable Nutritional Appearance: overweight Orientation/consciousness: patient oriented x3 Limitations: no limitations HEENT Other: No temporal area tenderness bilaterally Head: Yes normocephalic and Yes atraumatic Mouth: moist mucous membranes Resp Effort & Inspection: normal respiratory effort and able to speak in complete sentences Auscultation: clear to auscultation bilaterally GI Inspection: No distended Palpation (GI): Soft to palpation and nontender Skin General skin exam: no rashes or lesions noted Neuro General: patient oriented x3 Extrem Other: Osteoarthritic changes of both hands with no active synovitis Normal range of motion of both shoulders Bandages on left wrist and hand Assessment & Plan Assessment & Plan (1) Giant cell arteritis: Comment: Background history of PMR January 2023: headache, scalp tenderness, jaw pain - ESR/crp a bit higher. TA bx negative. prednisone increased with improvement. Actemra weekly added 03/2023 Code(s): M31.6 - Other giant cell arteritis Plan: This is a 78-year-old female with GCA/PMR who presents for follow-up. This is her 1st visit with me. She has tapered down her prednisone to 10 mg daily just recently. She is on Actemra weekly. She is in remission with no recurrence of GCA/PMR symptoms. Inflammatory markers are undetectable I suggested that patient stay on prednisone 10 mg daily for 1 month then taper by 1 mg every month. Patient states that she is currently getting over an episode of major depression and recent suicide attempt and her medications are being adjusted by her psychiatrist. She would like to stay on prednisone 10 mg daily for 3 months. I had a long conversation with patient and her regarding prednisone tapering, long-term risks of prednisone including cataracts, glaucoma, osteopenia. I explained that I do not believe that lowering prednisone by 1 mg every month is significant to cause any psychiatric side effects. She also feels that prednisone gives her energy. I explained that prednisone should not be used for this purpose. I explained that she is on full-dose Actemra 162 mg weekly which should be quite adequate for controlling her GCA/PMR. My suggestion is to continue Actemra weekly and remain on prednisone 10 mg daily for 1 month then reduce prednisone by 1 mg per month. I advised patient to reach out to her psychiatrist and they can reach out to me. 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 DEXA 11/2022 showed normal bone density. Plan to repeat 11/2024 Plan I spent 32 minutes reviewing patient's chart, evaluating patient, ordering diagnostic workup, counseling patient & her and documenting in the chart Coding Level of Care Code Est Pt Level 4 (03037) Diagnoses Giant cell arteritis M31.6 Immunodeficiency due to [employer] customer [employer] immunosuppressive drug therapy D84.821; T45.1X5A; Z79.899 [employer] customer [employer] systemic steroid user Z79.52
[2023-08-22 14:33] VITALS: BP 132/64; PULSE 67; TEMP 35.9; O2SAT 95; BMI 27.2
== END 2023-08-22 15:07 | disposition home or self-care (01) ==
LOC: HO.RHE 14:25
PROVIDERS: PCP Internal Medicine; Visit Provider Student in an Organized Health Care Education/Training Program
DX: M31.6 Other giant cell arteritis (principal); D84.821 Immunodeficiency due to drugs; T45.1X5A Adverse effect of antineoplastic and immunosuppressive drugs, initial encounter; Z79.899 Other long term (current) drug therapy; Z79.52 Long term (current) use of systemic steroids
CPT/HCPCS: 99214

== ENCOUNTER → 2023-08-22 14:25 | Outpatient (BNVA) | payer MEDICARE, SELFPAY | PROVIDERS: PCP Internal Medicine; Visit Provider Student in an Organized Health Care Education/Training Program | DX: M31.6 Other giant cell arteritis (principal); D84.821 Immunodeficiency due to drugs; T45.1X5A Adverse effect of antineoplastic and immunosuppressive drugs, initial encounter; Z79.52 Long term (current) use of systemic steroids | CPT/HCPCS: 99212 ==

== ENCOUNTER 2023-10-10 13:08 | Outpatient (REF) | payer MEDICARE, SELFPAY ==
[2023-10-10 15:13] LABS: Free T4 (Free Thyroxine) 1.02 ng/dL (0.71-1.85); Thyroid Stimulating Hormone 1.29 uIU/mL (0.32-4.0)
[2023-10-11 09:54] LABS: Triiodothyronine T3 Free 2.7 pg/mL (2.3-4.2)
== END 2023-10-10 13:09 | disposition home or self-care (01) ==
LOC: HO.LABR 13:08
PROVIDERS: PCP Internal Medicine; Visit Provider Family Medicine
DX: Z79.899 Other long term (current) drug therapy (principal)
CPT/HCPCS: 36415; 84439; 84443; 84481

== ENCOUNTER 2023-11-17 10:24 | Outpatient (REF) | payer MEDICARE, SELFPAY ==
[2023-11-17 10:39] LABS: MANUAL DIFF FLAG NO
[2023-11-17 11:02] LABS: Basophils Absolute Auto 0.1 X10*3/uL (0.0-0.2); Basophils Percent Auto 1.1 % (0-2); Eosinophils Absolute Auto 0.1 X10*3/uL (0.0-0.4); Eosinophils Percent Auto 0.7 % (0-4); Hemoglobin 16.7 g/dl (12.0-16.0); Imm Gran Abs Auto 0.05 X10*3/uL (0.00-0.03); Imm Gran Pct Auto 0.5 % (0.0-0.4); Lymphocytes Absolute Auto 1.4 X10*3/uL (1.2-4.9); Lymphocytes Percent Auto 14.4 % (20-40); Mean Corpuscular HGB Conc 34.8 g/dl (31.0-35.0); Mean Corpuscular Hemoglobin 33.4 pg (27.0-33.0); Mean Platelet Volume 9.1 fL (9.4-12.3); Monocytes Absolute Auto 0.6 X10*3/uL (0.1-1.2); Monocytes Percent Auto 6.5 % (2-11); Neutrophils Absolute Auto 7.2 x10*3/uL (2.0-8.3); Neutrophils Percent Auto 76.8 % (45-73); Platelet Count 293 X10*3/uL (160-400); Red Cell Distribution Width 12.3 % (11.0-16.0); White Blood Count 9.4 X10*3/uL (4.8-10.8)
[2023-11-17 11:24] LABS: Alanine Aminotransferase 20 U/L (0-31); Albumin Level 4.3 g/dL (3.5-5.0); Alkaline Phosphatase 52 U/L (39-117); Anion Gap 12 (12-20); Aspartate Amino Transferase 23 U/L (5-31); Bilirubin Total 0.4 mg/dL (0.0-1.0); Blood Urea Nitrogen 21 mg/dL (9-16); C Reactive Protein < 0.04 mg/dL (< or = 0.50); Calcium 9.8 mg/dL (8.4-10.2); Carbon Dioxide 25 mmol/L (22-29); Chloride 108 mmol/L (96-108); Estimated Glomerular Filt Rate > 60; Glucose Random 104 mg/dL (60-115); Potassium 4.2 mmol/L (3.3-5.1); Sodium 141 mmol/L (135-145)
[2023-11-17 11:45] LABS: Vitamin D 25-OH Total 79.5 ng/mL (>30)
[2023-11-17 11:53] LABS: Erythrocyte Sedimentation Rate 1 MM/HR (0-20)
[2023-11-19 10:39] LABS: DHEA Sulfate 7 mcg/dL (4-157)
[2023-11-21 10:28] LABS: Methylmalonic Acid 168 nmol/L (87-318)
[2023-11-25 18:38] LABS: Pregnenolone, LC/MS 8 ng/dL (22-237)
== END 2023-11-17 10:25 | disposition home or self-care (01) ==
LOC: HO.LAB 10:24
PROVIDERS: Family Medicine; PCP Internal Medicine; Visit Provider Student in an Organized Health Care Education/Training Program
DX: M35.3 Polymyalgia rheumatica (principal); F34.1 Dysthymic disorder; R53.83 Other fatigue; E55.9 Vitamin D deficiency, unspecified
CPT/HCPCS: 36415; 80053; 82306; 82627; 83921; 84143; 85025; 85652; 86140

== ENCOUNTER 2023-11-26 11:14 | Outpatient (AMB) | payer MEDICARE, SELFPAY ==
[2023-11-26 11:17] VITALS: BP 114/60; PULSE 67; O2SAT 96; BMI 28.1
--- NOTE | 2023-11-26 11:17 | MHC.OFFVIS ---
Vital Signs 11/26/23 11:17 Height 5 ft 6 in Weight 174 lb 2.643 oz BMI 28.1 BP 114/60 Blood Pressure Location Rt brachial Position Sitting Pulse 67 Pulse Source Pulse Oximeter Pulse Oximetry (%) 96 Oxygen Delivery Method Room Air Intake Visit Reasons: GCA Intake Note: Patient last seen 08/22/23 presents today for follow up and test results. Transitional Living Specialist Required: No Accompanied by: Hector Allergies penicillin V Allergy (Intermediate, Verified 11/26/23 11:25) Rash Medication List - Last Reconciled 11/26/23 by Christ Jones MD acetaminophen 650 mg (2 x 325 mg) PO Q4H PRN [Betaine With Pepsin 650/162 Mg 1 cap PO TIDWM] levothyroxine (Unithroid) 88 mcg PO DAILY 30 days melatonin 3 mg PO BEDTIME prednisone 10 mg PO DAILY Saccharomyces boulardii 250 mg PO BID [Time Release T3 10 Mg 10 mg PO DAILY 30 days] tocilizumab (Actemra ACTPen) 162 mg (0.9 mL) subcut QWEEK trazodone 50 mg PO BEDTIME venlafaxine ER (Effexor XR) 300 mg PO DAILY HPI Comments Details: 78-year-old female with GCA and PMR returns for follow-up. She has been lowering her prednisone by 1 mg per month. She is currently on mg daily. Roughly since the beginning of November. She remains on Actemra weekly. She has not had any headaches, blurry vision or PMR symptoms. She states that she feels more fatigued. She feels like she has to lie down. Does not have any energy. Her mood is not good. She remains depressed. Most recent history by Dr. Gresham 07/2023: The patient returns today with her for evaluation of her giant cell arteritis. Presently she is on 14 mg daily prednisone and 162 mg subcutaneously Actemra every week. She does not seem to have any headache, jaw claudication or episodic visual disturbance. She thinks the eyes have been a bit blurry for the last year or so. She does not have any shoulder, hip or back pain presently. She was hospitalized in late May with a suicide attempt. She presented to [facility] with self-inflicted left neck and left wrist lacerations. These were surgically evaluated. She had surgical closure of the neck wounds but still has an open wound in the left wrist. The says that they are planning a skin graft once there is enough granulation tissue present. She has the wrist in an Robert bandage and splint today. When she was surgically stabilized she was transferred to the psych unit here at [place]. She says the depression is improving. The venlafaxine was just increased to 300 mg daily in the last few days. She remains on Abilify, trazodone, and vitamin-A. 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 Polymyalgia rheumatica Surgical History Hx of skin graft Hx of surgical biopsy H/O tubal ligation H/O cataract removal with insertion of prosthetic lens History of knee replacement procedure of right knee Family History Father Leukemia Mother Stroke Social History Household Members: Spouse Housing: House Do you presently have visiting nurse or other home services: No Alcohol intake: current Alcohol intake frequency: a few times a week Alcohol type: wine Patient Tobacco Use Status: Former Tobacco user Quit Date: 04/06/2023 Tobacco use type: Cigarette Years Smoked: 20 e-Cigarette/Vaping Use: Never Used Second Hand Smoke Exposure: No service: No Sexual orientation: Straight/Heterosexual Review of Systems Const Denies fever(s) and Denies headache(s) ENT Denies headache(s) Neuro Denies headache(s) Physical Exam Vital Signs: Last Vital Signs Pulse 67 11/26/23 11:17 BP 114/60 11/26/23 11:17 Pulse Ox 96 11/26/23 11:17 Oxygen Delivery Method Room Air 11/26/23 11:17 BMI result Body Mass Index 28.1 Const General: cooperative, healthy appearing and comfortable Nutritional Appearance: overweight Orientation/consciousness: patient oriented x3 Limitations: no limitations HEENT Other: No temporal area tenderness bilaterally Head: Yes normocephalic and Yes atraumatic Mouth: moist mucous membranes Resp Effort & Inspection: normal respiratory effort and able to speak in complete sentences Auscultation: clear to auscultation bilaterally GI Inspection: No distended Palpation (GI): Soft to palpation and nontender Skin General skin exam: no rashes or lesions noted Neuro General: patient oriented x3 Extrem Other: Osteoarthritic changes of both hands with no active synovitis Normal range of motion of right shoulder. Mildly reduced left shoulder abduction Proximal muscle strength 5/5 all 4 extremities Results Reviewed Results Reviewed: Labs from [facility]: June 25: Creatinine 0.7, CRP less than 0.3, TSH 3.95, white count 4.7, hemoglobin 14.2 June 11: Sed rate less than 2 June 01: AST 40, ALT 13 Assessment & Plan Assessment & Plan (1) Giant cell arteritis: Comment: Background history of PMR January 2023: headache, scalp tenderness, jaw pain - ESR/crp a bit higher. TA bx negative. prednisone increased with improvement. Actemra weekly added 03/2023 Code(s): M31.6 - Other giant cell arteritis Category: Medical Plan: This is a 78-year-old female with GCA/PMR who presents for follow-up. She is on Actemra weekly and prednisone 6 mg daily She is in remission with no recurrence of GCA/PMR symptoms. Inflammatory markers are undetectable Starting December 04. Advised patient to lower her prednisone. 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 DEXA 11/2022 showed normal bone density. Plan to repeat 11/2024 Plan I spent 25 minutes reviewing patient's chart, evaluating patient, ordering diagnostic workup, counseling patient & her and documenting in the chart Orders: Orders Complete Blood Count Auto Diff 3 Months M31.6 - Other giant cell arteritis, M35.3 - Polymyalgia rheumatica C Reactive Protein 3 Months M31.6 - Other giant cell arteritis, M35.3 - Polymyalgia rheumatica Erythrocyte Sedimentation Rate 3 Months M31.6 - Other giant cell arteritis, M35.3 - Polymyalgia rheumatica Comprehensive Met. Panel 3 Months M31.6 - Other giant cell arteritis, M35.3 - Polymyalgia rheumatica Medications: New prednisone 5 mg PO DAILY 90 tabs 0RF NS Changed From tocilizumab (Actemra ACTPen) 162 mg (0.9 mL) subcut QWEEK 3.6 mL 5RF M31.6 - Other giant cell arteritis To Actemra ACTPen (tocilizumab) 162 mg (0.9 mL) subcut QWEEK 3.6 mL 3RF NS M31.6 - Other giant cell arteritis
== END 2023-11-26 11:47 | disposition home or self-care (01) ==
LOC: HO.RHE 11:14
PROVIDERS: PCP Internal Medicine; Visit Provider Student in an Organized Health Care Education/Training Program
DX: M31.6 Other giant cell arteritis (principal); D84.821 Immunodeficiency due to drugs; T45.1X5A Adverse effect of antineoplastic and immunosuppressive drugs, initial encounter; Z79.899 Other long term (current) drug therapy; Z79.52 Long term (current) use of systemic steroids
CPT/HCPCS: 99214

== ENCOUNTER → 2023-11-26 11:14 | Outpatient (BNVA) | payer MEDICARE, SELFPAY | PROVIDERS: PCP Internal Medicine; Visit Provider Student in an Organized Health Care Education/Training Program | DX: M31.6 Other giant cell arteritis (principal); D84.821 Immunodeficiency due to drugs; T45.1X5A Adverse effect of antineoplastic and immunosuppressive drugs, initial encounter; Z79.52 Long term (current) use of systemic steroids; Z79.899 Other long term (current) drug therapy | CPT/HCPCS: 99212 ==

== ENCOUNTER 2023-12-28 14:30 | Outpatient (REF) | payer MEDICARE, SELFPAY ==
[2023-12-28 16:16] LABS: Free T4 (Free Thyroxine) 0.93 ng/dL (0.71-1.85); Thyroid Stimulating Hormone 1.26 uIU/mL (0.32-4.0)
[2024-01-01 18:49] LABS: Triiodothyronine T3 Free 2.5 pg/mL (2.3-4.2)
== END 2023-12-28 14:31 | disposition home or self-care (01) ==
LOC: HO.LABR 14:30
PROVIDERS: Visit Provider Family Medicine
DX: Z79.899 Other long term (current) drug therapy (principal)
CPT/HCPCS: 36415; 84439; 84443; 84481

== ENCOUNTER 2024-02-27 11:21 | Outpatient (REF) | payer MEDICARE, SELFPAY ==
[2024-02-27 12:01] LABS: MANUAL DIFF FLAG NO
[2024-02-27 12:13] LABS: Basophils Absolute Auto 0.1 X10*3/uL (0.0-0.2); Basophils Percent Auto 1.1 % (0-2); Eosinophils Absolute Auto 0.1 X10*3/uL (0.0-0.4); Eosinophils Percent Auto 0.9 % (0-4); Hematocrit 46.4 % (37.0-47.0); Imm Gran Abs Auto 0.06 X10*3/uL (0.00-0.03); Imm Gran Pct Auto 0.6 % (0.0-0.4); Lymphocytes Absolute Auto 1.4 X10*3/uL (1.2-4.9); Lymphocytes Percent Auto 12.9 % (20-40); Mean Corpuscular HGB Conc 34.5 g/dl (31.0-35.0); Mean Corpuscular Hemoglobin 33.2 pg (27.0-33.0); Mean Corpuscular Volume 96.3 fL (80.0-98.0); Mean Platelet Volume 9.5 fL (9.4-12.3); Monocytes Absolute Auto 0.5 X10*3/uL (0.1-1.2); Neutrophils Absolute Auto 8.4 x10*3/uL (2.0-8.3); Neutrophils Percent Auto 79.5 % (45-73); Platelet Count 239 X10*3/uL (160-400); Red Blood Count 4.82 X10*6/uL (4.20-5.50); Red Cell Distribution Width 12.5 % (11.0-16.0); White Blood Count 10.5 X10*3/uL (4.8-10.8)
[2024-02-27 12:53] LABS: Erythrocyte Sedimentation Rate 1 MM/HR (0-20)
[2024-02-27 13:32] LABS: Alanine Aminotransferase 17 U/L (0-31); Albumin Level 4.2 g/dL (3.5-5.0); Alkaline Phosphatase 48 U/L (39-117); Anion Gap 12 (12-20); Aspartate Amino Transferase 20 U/L (5-31); Bilirubin Total 0.4 mg/dL (0.0-1.0); Blood Urea Nitrogen 21 mg/dL (9-16); C Reactive Protein < 0.10 mg/dL (< or = 0.50); Calcium 9.9 mg/dL (8.4-10.2); Carbon Dioxide 23 mmol/L (22-29); Chloride 108 mmol/L (96-108); Estimated Glomerular Filt Rate > 60; Glucose Random 145 mg/dL (60-115); Sodium 139 mmol/L (135-145); Total Protein 6.8 g/dL (6.5-8.0)
[2024-02-27 13:49] LABS: Free T4 (Free Thyroxine) 0.89 ng/dL (0.71-1.85); Thyroid Stimulating Hormone 1.71 uIU/mL (0.32-4.0)
[2024-02-28 08:34] LABS: Triiodothyronine T3 Free 2.6 pg/mL (2.3-4.2)
== END 2024-02-27 11:22 | disposition home or self-care (01) ==
LOC: HO.LABR 11:21
PROVIDERS: Student in an Organized Health Care Education/Training Program; PCP Internal Medicine; Visit Provider Family Medicine
DX: Z79.899 Other long term (current) drug therapy (principal); M31.6 Other giant cell arteritis; M35.3 Polymyalgia rheumatica
CPT/HCPCS: 36415; 80053; 84439; 84443; 84481; 85025; 85652; 86140